=== PATIENT | female | born 1975 | race Caucasian/White ===

== ENCOUNTER 2019-12-11 18:27 | Emergency (ER) | payer OTHER, SELFPAY ==
--- NOTE | ~2019-12-11 | XR_ITS ---
EXAMINATION: XR chest 2V EXAM DATE: 12/11/2019 18:59 INDICATION: Difficulty breathing. TECHNIQUE: Frontal and lateral projections of the chest obtained and reviewed. Comparison is made to prior examination from 05/24/2012. FINDINGS: Interval development of small pleural effusions. There is some ill-defined bibasilar airsp alexander disease, could be small amounts atelectasis or pneumonia. Left basilar granuloma. Heart is normal in size. No pneumothorax. There are no osseous abnormalities identified. IMPRESSION: Small pleural effusions and nonspecific bibasilar airspace disease likely atelectasis and /or infection. Reviewed, dictated and finalized at location A. IMPRESSION: Small pleural effusions and nonspecific bibasilar airspace disease likely atelectasis and/or infection.
[2019-12-11 18:44] VITALS: BP 149/101; PULSE 99; RESP 16; TEMP 37.3; O2SAT 90
--- NOTE | 2019-12-11 18:44 | ED.URI ---
HPI - URI/Sore Throat General Chief Complaint: Upper Respiratory Infection Stated Complaint: COLD Time Seen by Provider: 12/11/19 18:45 Source: patient and RN notes reviewed History of Present Illness HPI Narrative: Patient is a 44-year-old female who presents the urgent care with complaints of upper respiratory infection. Patient states that she has had her symptoms since October and called her PCP who directed her to the urgent care. Patient states that she was also tested for [facility] that with the results were not back today. Patient states that the results should be back tomorrow. Reports of a nonproductive cough with some intermittent wheezing and dyspnea. Patient states that she started having the rattling in her chest within the last couple days . Patient denies of any fever, chills, nausea, vomiting patient states that she is an asthmatic but has not left her house to refill her inhalers. Therefore patient has taken vitamin C, Benadryl and DayQuil without much symptom relief. Patient is a daily smoker. No other acute complaints. Patient aware of the plan of care. Related Data Allergies Allergy/AdvReac Type Severity Reaction Status Date / Time Penicillins Allergy Unknown Verified 05/24/16 19:47 Review of Systems Review of Systems: Narrative: CONSTITUTIONAL: Denies fever, chills, or sweats. EYES: Denies visual changes, redness, or discharge. ENT: Denies rhinorrhea, congestion, sore throat, or otalgia. CARDIOVASCULAR: Denies chest pain, palpitations, or edema. RESPIRATORY: Reports of intermittent nonproductive cough with dyspnea and wheezing GASTROINTESTINAL: Denies abdominal pain, nausea, vomiting, or diarrhea. GENITOURINARY: Denies dysuria or hematuria. SKIN: Denies rash or itching. MUSCULOSKELETAL: Denies back pain, joint pain, or myalgia. NEUROLOGIC: Denies headache, numbness, or weakness. All other systems reviewed are negative, except as documented in HPI. PMFSH Comments At the time of my signature, I reviewed and agree with the nursing past medical, surgical, social, and family history. There is no relevant family history pertinent to the patient complaint. Exam Narrative: Exam Narrative: GENERAL: This is a well-nourished, well-developed patient, in no apparent distress. HEAD: normocephalic, atraumatic. EYES: PERRL. Sclera clear/white. Vision is grossly intact. EARS: External ears normal, auditory canals clear and without drainage, TMs normal without perforation. Hearing grossly intact. NOSE: External nose normal with no obvious nasal discharge, nares without redness, clear rhinorrhea. THROAT: Mucous membranes moist, posterior pharynx clear. NECK: Neck supple CARDIOVASCULAR: Regular rate and rhythm without murmurs, gallops, or rubs. RESPIRATORY: Right upper lobe expiratory wheezes and crackles with diminished bibasilar SKIN: warm, intact with no suspicious lesions or rash, good texture and turgor. NEURO: awake, alert, and oriented to person, place and time. There were no obvious focal neurologic abnormalities. EXTREMITIES: No clubbing, cyanosis, or edema. Course Vital Signs Vital signs: Vital Signs Temperature 99.2 F 12/11/19 18:44 Pulse Rate 99 12/11/19 18:44 Respiratory Rate 16 12/11/19 18:44 Blood Pressure 149/101 H 12/11/19 18:44 Pulse Oximetry 90 12/11/19 18:44 Temperature 99.2 F 12/11/19 18:44 Pulse Rate 99 12/11/19 18:44 Respiratory Rate 16 12/11/19 18:44 Blood Pressure 149/101 H 12/11/19 18:44 Pulse Oximetry 90 12/11/19 18:44 Reviewed-patient is informed that they may have pre-hypertension or hypertension based on a blood pressure reading in the department. I recommend the patient call the primary care provider listed on their discharge instructions or a physician of their choice this week to arrange follow-up for further evaluation of possible pre-hypertension or hypertension. MDM - URI/Sore Throat MDM Narrative Medical decision making narrative: Emy
[2019-12-11] MEDS: IPRATROPIUM BR 0.02% INH SOLN 0.5 MG/2.5 ML VIAL INHALATION (18:59)
[2019-12-11] MEDS: ALBUTEROL SULFATE NEB 2.5 MG/3 ML INH INHALATION (19:00)
[2019-12-11 19:22] VITALS: BP 152/104; PULSE 99; RESP 20; O2SAT 92
== END 2019-12-11 19:21 | disposition home or self-care (01) ==
PROVIDERS: Emergency Provider Nurse Practitioner Family
DX: J18.9 Pneumonia, unspecified organism (principal); F17.210 Nicotine dependence, cigarettes, uncomplicated
CPT/HCPCS: 71046; 94640; 99213; G0463

== ENCOUNTER 2021-08-28 12:58 | Emergency (ER) | payer SELFPAY ==
--- NOTE | ~2021-08-28 | XR_ITS ---
EXAMINATION: XR chest 1V INDICATION: Shortness of breath and hypoxia TECHNIQUE: Frontal view of the chest is obtained on two radiographs. COMPARISON: 12/11/2019 FINDINGS: There are minimal airspace opacities of the lung bases left greater than right. There is no pleural effusion or pneumothorax. The cardiomediastinal silhouette is stable. IMPRESSION: 1. Minimal bibasilar airspace opacities, consistent with atelectasis versus pneumonia. Reviewed, dictated and finalized at location A. ENT CARE COORDINATOR IMPRESSION: 1. Minimal bibasilar airspace opacities, consistent with atelectasis versus pne umonia.
[2021-08-28 13:07] VITALS: BP 152/89; PULSE 85; RESP 16; TEMP 36.5; O2SAT 84
[2021-08-28 13:09] VITALS: O2SAT 97
[2021-08-28 13:11] VITALS: O2SAT 96
--- NOTE | 2021-08-28 13:15 | ED.GENADULT ---
HPI - General Adult General Chief complaint: Shortness of Breath/Dyspnea Stated complaint: sob Time Seen by Provider: 08/28/21 13:15 Source: patient and RN notes reviewed Mode of arrival: ambulatory Limitations: no limitations History of Present Illness HPI narrative: 45-year-old female presented for complaint of Sob and cough worsening over the past 2 weeks stating it feels like the lower parts of my lungs have something in them. She was diagnosed with Covid pneumonia on 08/09/2021, and took Azithromycin and steroid as outpt as directed and noticed improvement for about 1 week. She endorses history of sarcoidosis. She is a daily smoker, 2.5 ppd until 1 mo down to 8 cig/day. She states she had been outside several times a day when the weather was '-21' caring for her dog and contributes this to worsening symptoms. Denies cp, palpitations, n/v/d/f/c. Related Data Home Medications Medication Instructions Recorded Confirmed lisinopril 20 mg PO DAILY 08/28/21 08/28/21 Allergies Allergy/AdvReac Type Severity Reaction Status Date / Time Penicillins Allergy Unknown Other Verified 08/28/21 13:06 Review of Systems Review of Systems: CONSTITUTIONAL: Endorses malaise, chills, sweats, fever EYES: Denies visual changes, redness, or discharge ENT: Reports rhinorrhea, congestion, sinus pain, otalgia, sore throat CARDIOVASCULAR: Denies chest pain, palpitations, edema RESPIRATORY: Reports cough, dyspnea GASTROINTESTINAL: Denies abdominal pain, nausea, vomiting, diarrhea SKIN: Denies rash or itching MUSCULOSKELETAL: denies myalgia NEUROLOGIC: Denies headache Exam Narrative: GENERAL: Ill-appearing, no acute distress. HEAD: Normocephalic EYES: PERRLA, conjunctivae clear ENT: Mucous membranes moist. TM pearly oakes with dull light reflex bilaterally; no tragal tenderness. Oropharynx erythematous without lesions or exudate, no drooling, no hoarseness, no trismus, uvula midline. No tripod positioning, muffled voice, soft palate or pharyngeal wall bulging NECK: Supple. No lymphadenopathy CHEST: Wheezing to right lower lobe, Oxygenation improved on 4L per NC. speaks in full sentences. HEART: Regular rate and rhythm. No murmur heard. SKIN: Warm, dry, no rash. NEURO: Alert and oriented x3. PSYCH: Normal mood and affect Course Course Emergency Course: Presented with hypoxia O2 sat 84% RA. Improved to 96% 4L per NC. Albuterol neb Tx 1330. Reassessed 1400, lungs wheezing and coarse throughout. Will get CXR. Decreased O2 to 2L per NC, 93%. Walking O2 on RA 88%. Pt adamantly refuses to transfer to ER at this time. Signing AMA, She is advised on s/s to go immediately to ER. v/u. Patient is aware of diagnosis, understands and agrees to treatment plan. Anticipatory guidance given. Patient agrees to follow-up as directed and is aware of reasons to seek care at the emergency department. Portions of this record may have been created with voice recognition software Level of Care: Express Care Visit Vital Signs Vital signs: Vital Signs Temperature 97.7 F 08/28/21 13:07 Pulse Rate 85 08/28/21 13:07 Respiratory Rate 16 08/28/21 13:07 Blood Pressure 152/89 H 08/28/21 13:07 Pulse Oximetry 84 L 08/28/21 13:07 Temperature 97.7 F 08/28/21 13:07 Pulse Rate 85 08/28/21 13:07 Respiratory Rate 16 08/28/21 13:07 Blood Pressure 152/89 H 08/28/21 13:07 Pulse Oximetry 95 08/28/21 13:30 reviewed Medical Decision Making Differential Diagnosis Differential Diagnosis: influenza, covid, sinusitis, OM, strep pharyngitis, URI, pneumonia Vital Signs Vital Signs: Vital Signs Temperature 97.7 F 08/28/21 13:07 Pulse Rate 85 08/28/21 13:07 Respiratory Rate 16 08/28/21 13:07 Blood Pressure 152/89 H 08/28/21 13:07 Pulse Oximetry 84 L 08/28/21 13:07 Temperature 97.7 F 08/28/21 13:07 Pulse Rate 85 08/28/21 13:07 Respiratory Rate 16 08/28/21 13:07 Blood Pressure 152/89 H 08/28/21 13:07 Pulse Oximetry
[2021-08-28] MEDS: ALBUTEROL SULFATE NEB 2.5 MG/3 ML INH 1.25 MG INHALATION (13:22)
[2021-08-28 13:25] VITALS: O2SAT 87
[2021-08-28 13:30] VITALS: O2SAT 95
[2021-08-28 16:00] VITALS: PULSE 94; RESP 20; O2SAT 88
== END 2021-08-28 16:00 | disposition left against medical advice (07) ==
PROVIDERS: Emergency Provider Nurse Practitioner Family
DX: R06.02 Shortness of breath (principal); R09.02 Hypoxemia; Z86.16 Personal history of COVID-19; F17.210 Nicotine dependence, cigarettes, uncomplicated
CPT/HCPCS: 71045; 94640; 99213; G0463

== ENCOUNTER 2021-08-29 20:34 | Emergency (ER) | payer SELFPAY ==
--- NOTE | ~2021-08-29 | CT_ITS ---
EXAMINATION: CTA chest PE protocol DATE: 08/29/2021 22:08 INDICATION: Right-sided back pain, recent COVID TECHNIQUE: Computed tomography angiography (CTA) of the chest was performed with 100 mL Omnipaque-350 intravenous contrast timed to evaluate the pulmonary arteries. Coronal maximum intensity projection 3D-reconstructions were created by the technologist. The dose-length product (DLP) was 1049.66 mGy-cm . Automated exposure control and iterative reconstruction technique were employed. COMPARISON: None. FINDINGS: The pulmonary arteries are well-opacified. No pulmonary embolism is identified. The examina tion is limited by the patient's body habitus and respiratory motion artifact. The lungs are free of acute opacities. There is no pleural effusion or pneumothorax. No pathologically enlarged thoracic l ymph nodes are identified. The heart size is normal. Calcified pulmonary nodules are consistent with old granulomatous disease. Stones are present in the gallbladder. IMPRESSION: 1. No pulmonary embolism or acute cardiopulmonary abnormality. 2. Cholelithiasis. Reviewed, dictated and finalized at location F. LA TENDER
[2021-08-29 20:42] VITALS: BP 178/97; PULSE 90; RESP 18; TEMP 36.9; O2SAT 93
[2021-08-29 21:07] VITALS: O2SAT 86
[2021-08-29 21:09] VITALS: RESP 25; O2SAT 86
[2021-08-29 21:10] VITALS: RESP 20; O2SAT 95; O2SAT 96
--- NOTE | 2021-08-29 21:12 | PC.NURSE ---
Patient stated, my oxygen has been running in the low 80's and I didnt think anything of it. Patient oxygen was 86% and she was SOB so I placed her on 2L of Oxygen and now she is 95%
--- NOTE | 2021-08-29 21:16 | PC.NURSE ---
Patient refused to lay down at this point and RN unable to obtain ortho stats.
[2021-08-29 21:17] LABS: Basophils Absolute Auto 0.1 K/mm3 (0.0-0.1); Basophils Percent Auto 0.4 % (0.2-1.2); Eosinophils Percent Auto 0.1 % (0-4.4); Hematocrit 56.1 % (37.0-47.0); Immature Granulocyte Absolute 0.06 K/mm3 (0.00-0.031); Immature Granulocyte Percent A 0.5 % (0-0.5); Lymphocytes Absolute Auto 0.73 K/mm3 (0.9-3.2); Lymphocytes Percent Auto 5.7 % (18.3-44.2); Mean Corpuscular HGB Conc 32.1 g/dl (32-36); Mean Corpuscular Hemoglobin 30.2 pg (26-34); Mean Corpuscular Volume 94.1 fl (80-100); Monocytes Absolute Auto 0.4 K/mm3 (0.1-0.6); Monocytes Percent Auto 3.1 % (2.6-8.5); Neutrophils Absolute Auto 11.5 K/mm3 (1.3-6.7); Neutrophils Percent Auto 90.2 % (45.5-73.1); Platelet Count Result 311 k/mm3 (150-375); Red Blood Count 5.96 M/mm3 (4.2-5.4); Red Cell Distribution Width 14.7 % (11.5-14.5); White Blood Count 12.8 K/mm3 (4.5-10.0)
[2021-08-29 21:20] LABS: Add Urine Microscopic? NO; Appearance Urine Clear (Clear); Bilirubin Urine Negative (Negative); Blood Urine Negative (Negative); Color Urine Straw (Yellow); Glucose Urine UA Negative (Negative); Ketones Urine Negative (Negative); Leukocyte Esterase Ur Negative LEU/UL (Negative); Nitrate Urine Negative (Negative); Protein Urine Negative (Negative); Specific Grav Ur 1.009 (1.001-1.035); Urobilinogen Urine Negative mg/dL (<2.0)
--- NOTE | 2021-08-29 21:20 | ED.BACK ---
HPI - Back Pain/Injury General Chief Complaint: Back Pain/Injury Stated Complaint: Right hip/flank pain, COVID+ 2/4 still symptomatic Time Seen by Provider: 08/29/21 20:52 Source: patient History of Present Illness HPI Narrative: Patient presents with back pain. Patient reports she was diagnosed with Covid end of last month she initially seen and treated with antibiotics she had worsening cough and shortness of breath was seen in urgent care yesterday. She was noted to be hypoxic with recommendation to transfer to emergency room she left the hospital AMA. She steroids and antibiotics since her urgent care evaluation yesterday and feels like her shortness of breath and cough have improved however now she is having right-sided back pain that is sharp, no radiation, intermittent, no clear aggravating or alleviating symptoms. Related Data Home Medications Medication Instructions Recorded Confirmed lisinopril 20 mg PO DAILY 08/28/21 08/28/21 Allergies Allergy/AdvReac Type Severity Reaction Status Date / Time Penicillins Allergy Unknown Other Verified 08/29/21 20:51 Review of Systems Review of Systems: CONSTITUTIONAL: Denies fever, chills, or sweats. EYES: Denies visual changes, redness, or discharge. ENT: Denies rhinorrhea, congestion, sore throat, or otalgia. CARDIOVASCULAR: Denies chest pain, palpitations, or edema. RESPIRATORY: Shortness of breath GASTROINTESTINAL: Denies abdominal pain, nausea, vomiting, or diarrhea. GENITOURINARY: Denies dysuria or hematuria. SKIN: Denies rash or itching. MUSCULOSKELETAL: Denies joint pain, or myalgia. NEUROLOGIC: Denies headache, numbness, dizziness, or weakness. PSYCHIATRIC: Denies anxiety or depression. All systems reviewed & are unremarkable except as noted in HPI and below [facility] Social History Social History (Updated 08/29/21 @ 21:22 by Kaiden Mcrae MD) Smoking status: Current every day smoker Course Reevaluation(s) Reevaluation #1: Patient's pain is improved O2 sat is responding to 2 L nasal cannula. Labs and imaging reviewed with patient recommend admission for hypoxia patient declined and signed out AMA. Date: 08/29/21 Time: 23:12 Vital Signs Vital signs: Vital Signs Temperature 36.9 C 08/29/21 20:42 Pulse Rate 90 08/29/21 20:42 Respiratory Rate 18 08/29/21 20:42 Blood Pressure 178/97 H 08/29/21 20:42 Pulse Oximetry 93 08/29/21 20:42 Temperature 36.9 C 08/29/21 20:42 Pulse Rate 90 08/29/21 20:42 Respiratory Rate 20 08/29/21 21:10 Blood Pressure 178/97 H 08/29/21 20:42 Pulse Oximetry 94 08/29/21 22:37 MDM - Back Pain/Injury MDM Narrative Medical decision making narrative: H&P as above, vs with hypoxia responding to nasal cannula, pt looks clinically well, exam reassuring, labs with leukocytosis, img reassuring, additional labs/img considered. Due to patient's persistent hypoxia is recommended that she be admitted for further evaluation and management such as pulmonology evaluation steroids and nebulized therapies. Patient declined further evaluation and management. And signed out AMA as an alternative I refilled her nebulizer therapy to take at home she has recent prescribed steroids which she reports she will take. I have also given her a referral to pulmonology as she reports she has had low oxygen levels for years. Lab Data Result diagrams: 08/29/21 21:11 08/29/21 21:11 Labs: Lab Results 08/29/21 08/29/21 08/29/21 Range/Units 21:09 21:11 21:11 WBC 12.8 H (4.5-10.0) K/mm3 RBC 5.96 H (4.2-5.4) M/mm3 Hgb 18.0 H (12.0-15.0) g/dL Hct 56.1 H (37.0-47.0) % MCV 94.1 (80-100) fl MCH 30.2 (26-34) pg MCHC 32.1 (32-36) g/dl RDW 14.7 H (11.5-14.5) % Plt Count 311 (150-375) k/mm3 MPV 10.0 (7.4-10.4) fl Immature Gran % (Auto) 0.5 (0-0.5) % Neut % (Auto) 90.2 H (45.5-73.1) % Lymph % (Auto) 5.7 L (18.3-44.2) % [place] % (Auto) 3.1 (2.6-8
[2021-08-29 21:46] LABS: Alanine Aminotransferase 18 U/L (4-35); Albumin Level 4.5 g/dL (3.5-5.1); Alkaline Phosphatase 82 U/L (38-126); Anion Gap 5 mmol/L (8-16); Aspartate Amino Transferase 27 U/L (14-36); Bilirubin,Total 0.5 mg/dL (0.2-1.3); Blood Urea Nitrogen 13 mg/dL (7-17); Calcium 9.5 mg/dL (8.4-10.2); Carbon Dioxide 33 mmol/L (22-30); Chloride 98 mmol/L (98-107); Estimated CRCL calculation 165 ml/min; Estimated Glomerular Filt Rate > 60; Glucose 149 mg/dL (65-110); Lipase 23 U/L (23-300); Potassium 4.9 mmol/L (3.4-5.0); Sodium 136 mmol/L (137-145)
[2021-08-29] MEDS: ONDANSETRON INJ 4 MG/2 ML VIAL IV PUSH (22:23)
[2021-08-29] MEDS: IBUPROFEN 600 MG TABLET PO (22:24)
[2021-08-29 22:37] VITALS: O2SAT 94
--- NOTE | 2021-08-29 23:30 | PC.NURSE ---
Patient refused ortho BP because she is unable to breath when she she lays down and she gets SOB when she stands and talks.
--- NOTE | 2021-08-29 23:31 | PC.NURSE ---
Patient signed out AMA because she states, I dont care what anyone thinks I am not staying in the hospital. Patient is out of breath while talking and changing positions and her oxygen drops in the higher 80's. Patient was put on oxygen here and her oxygen levels went to 94% but it still drops when she talks. Patient was informed about the risks of going home and signing out AMA with her oxygen saturations being so low. Patient stated, I dont care I am not staying here and my oxygen has been in the 80's Patient signed out AMA and ambulated out of the ED with all belongings and SOB while ambulating. Patient offered a wheel chair to leave the ED and patient refused and said I can walk out on my own
== END 2021-08-29 23:41 | disposition left against medical advice (07) ==
PROVIDERS: Emergency Provider Emergency Medicine; PCP Student in an Organized Health Care Education/Training Program
DX: M54.9 Dorsalgia, unspecified (principal); R09.02 Hypoxemia; Z86.16 Personal history of COVID-19; F17.200 Nicotine dependence, unspecified, uncomplicated; K80.20 Calculus of gallbladder without cholecystitis without obstruction
CPT/HCPCS: 36415; 71275; 80053; 81003; 81025; 83690; 85025; 96374; 99284; A9270; J2405; Q9967

== ENCOUNTER 2021-09-06 23:49 | Inpatient (IN) | payer SELFPAY ==
--- NOTE | ~2021-09-06 | XR_ITS ---
EXAMINATION: XR chest 2V DATE: 09/07/2021 01:48 INDICATION: Shortness of breath. TECHNIQUE: Frontal and lateral views of the chest were obtained. COMPARISON: Chest single view 08/28/2021, chest CT 08/29/2021 FINDINGS: Calcified pulmonary nodules are consistent with old granulomatous disease. There is mild at electasis in the lower lung zones. No pleural effusion or pneumothorax. The heart size is normal. IMPRESSION: 1. Mild atelectasis in the lower lung zones. Reviewed, dictated and finalized at location A. LOGING ASSISTANT
[2021-09-06 23:59] VITALS: BP 180/113; PULSE 85; RESP 22; TEMP 36.4; O2SAT 99
[2021-09-07] VITALS (22 sets, daily range): BP systolic 118–153; BP diastolic 63–94; PULSE 75–98; RESP 16–26; TEMP 36.6–37; O2SAT 88–99; BMI 55.6
--- NOTE | 2021-09-07 00:13 | ECG_ITS ---
Measurements Intervals [place] Rate: 82 P: 16 FL: 152 QRS: 65 QRSD: 95 T: 36 QT: 365 QTc: 427 Interpretive Statements SINUS RHYTHM BASELINE ARTIFACT NORMAL ECG NO SIGNIFICANT CHANGE COMPARED TO PRIOR ECG 09/10/2018 Electronically Signed On 09-07-2021 14:21:01 BARBACK by Evans Stallings M.D.
[2021-09-07 00:24] LABS: Basophils Absolute Auto 0.1 K/mm3 (0.0-0.1); Basophils Percent Auto 0.5 % (0.2-1.2); Eosinophils Absolute Auto 0.1 K/mm3 (0-0.3); Eosinophils Percent Auto 1.3 % (0-4.4); Hematocrit 56.6 % (37.0-47.0); Immature Granulocyte Absolute 0.11 K/mm3 (0.00-0.031); Lymphocytes Absolute Auto 1.85 K/mm3 (0.9-3.2); Lymphocytes Percent Auto 17.5 % (18.3-44.2); Mean Corpuscular HGB Conc 31.8 g/dl (32-36); Mean Corpuscular Hemoglobin 30.4 pg (26-34); Mean Corpuscular Volume 95.4 fl (80-100); Monocytes Absolute Auto 0.8 K/mm3 (0.1-0.6); Monocytes Percent Auto 7.3 % (2.6-8.5); Neutrophils Absolute Auto 7.7 K/mm3 (1.3-6.7); Neutrophils Percent Auto 72.4 % (45.5-73.1); Platelet Count Result 309 k/mm3 (150-375); Red Blood Count 5.93 M/mm3 (4.2-5.4); Red Cell Distribution Width 14.7 % (11.5-14.5); White Blood Count 10.6 K/mm3 (4.5-10.0)
[2021-09-07] MEDS: methylPREDNISolone SOD SUCC 125 MG VIAL IV PUSH (00:28)
[2021-09-07] MEDS: ALBUTEROL SULFATE NEB 2.5 MG/0.5 ML INH 15 MG INHALATION (00:29)
[2021-09-07] MEDS: IPRATROPIUM BR 0.02% INH SOLN 0.5 MG/2.5 ML VIAL 1.5 MG INHALATION (00:30)
[2021-09-07 00:34] LABS: Alanine Aminotransferase 22 U/L (4-35); Albumin Level 4.4 g/dL (3.5-5.1); Alkaline Phosphatase 79 U/L (38-126); Anion Gap 5 mmol/L (8-16); Aspartate Amino Transferase 36 U/L (14-36); Bilirubin,Total 0.6 mg/dL (0.2-1.3); Blood Urea Nitrogen 19 mg/dL (7-17); Calcium 9.1 mg/dL (8.4-10.2); Carbon Dioxide 36 mmol/L (22-30); Chloride 97 mmol/L (98-107); Estimated CRCL calculation 144 ml/min; Estimated Glomerular Filt Rate > 60; Glucose 158 mg/dL (65-110); Potassium 4.2 mmol/L (3.4-5.0); Sodium 138 mmol/L (137-145)
--- NOTE | 2021-09-07 02:28 | ED.SOB ---
HPI - SOB/Dyspnea General Chief Complaint: Shortness of Breath/Dyspnea Stated Complaint: low oxygen levels Time Seen by Provider: 09/06/21 23:57 History of Present Illness HPI Narrative: Patient is a 45-year-old female who presents ER with shortness of breath. Ongoing for several weeks. No improvement. She has used home albuterol and has been on antibiotics without improvement. Patient has history of 3 pack a day smoking but is only smoking half pack a day at this time. Denies fevers or chills or sweats. Has mild cough. Patient had Covid couple months back. No chest pain or chest pressure. No loss consciousness. Patient reports exertional decline due to this. She has been seen in the ER in the past and found to be hypoxic but is declined admission in the hospital. Related Data Home Medications Medication Instructions Recorded Confirmed lisinopril 20 mg PO DAILY 08/28/21 09/07/21 ibuprofen 600 mg PO Q6H PRN 09/07/21 09/07/21 Allergies Allergy/AdvReac Type Severity Reaction Status Date / Time Penicillins Allergy Unknown Other Verified 09/07/21 05:01 Review of Systems Review of Systems: All systems reviewed & are unremarkable except as noted in HPI and below Constitutional: Constitutional: Denies chills, Reports fatigue, Denies fever(s) and Reports weakness ENT: Denies nasal congestion and Denies sore throat Cardiovascular: Cardiovascular: Denies chest pain, Denies rapid heart rate and Denies radiating jaw, neck or arm pain Respiratory: Respiratory: Reports cough, Reports dyspnea and Denies wheezing Gastrointestinal: Gastrointestinal: Denies abdominal pain, Denies nausea and Denies vomiting Musculoskeletal: Musculoskeletal: Denies back pain and Denies muscle cramps PMFSH Past Medical History Medical History (Updated 09/07/21 @ 06:47 by Blake Bernard MD) Hypertension Surgical History Surgical History (Updated 09/07/21 @ 02:30 by Blake Bernard MD) No pertinent past surgical history Family History Family History (Updated 09/07/21 @ 05:23 by Cassandra Bianchi RN) Sibling Cerebrovascular accident Other Lung cancer Social History Social History (Updated 08/29/21 @ 21:22 by Kaiden Mcrae MD) Smoking status: Current every day smoker Tobacco type: cigarettes Alcohol intake: current Drinks per week: 2 Substance use: never Spiritual care concerns: No Exam Narrative: GENERAL: Well-appearing, morbidly obese, and in no acute distress. HEAD: Normocephalic, atraumatic. EYES: PERRL and EOMI. ENT: Mucous membranes moist. CHEST: Coarse wheezing rales bilateral mid lung zones. Mild respiratory distress. HEART: Regular rate and rhythm. Normal peripheral pulses. EXTREMITIES: Normal range of motion. No edema. SKIN: Warm, dry, no rash. NEURO: Alert and oriented x3. PSYCH: Normal mood and affect. Course Course Emergency Course: Patient given hour-long breathing treatment as well as IV steroids. Patient still with hypoxia and placed on 3 L satting 95%. We will plan admission to hospitalist service for further evaluation. Vital Signs Vital signs: Vital Signs Temperature 97.6 F 09/06/21 23:59 Pulse Rate 85 09/06/21 23:59 Respiratory Rate 22 H 09/06/21 23:59 Blood Pressure 180/113 H 09/06/21 23:59 Pulse Oximetry 99 09/06/21 23:59 Temperature 97.8 F 09/07/21 05:44 Pulse Rate 86 09/07/21 05:44 Respiratory Rate 22 H 09/07/21 05:44 Blood Pressure 145/94 H 09/07/21 05:44 Pulse Oximetry 94 09/07/21 05:44 MDM - SOB/Dyspnea Lab Data Result diagrams: 09/07/21 00:18 09/07/21 00:18 Labs: Lab Results 09/07/21 09/07/21 Range/Units 00:18 00:18 WBC 10.6 H (4.5-10.0) K/mm3 RBC 5.93 H (4.2-5.4) M/mm3 Hgb 18.0 H (12.0-15.0) g/dL Hct 56.6 H (37.0-47.0) % MCV 95.4 (80-100) fl MCH 30.4 (26-34) pg MCHC 31.8 L (32-36) g/dl RDW 14.7 H (11.5-14.5) % Plt Count 309 (150-375)
--- NOTE | 2021-09-07 02:52 | PM.IMHP ---
H&P: HPI History of Present Illness Date/Time: 09/07/21 02:52 Chief Complaint: Shortness of breath Narrative: This is a 45-year-old female with past medical history significant for tobacco dependence, COPD/emphysema, morbid obesity, hypertension. Patient presents to the emergency room after her pulse oximeter at home rated 82% history oxygen on room air. Patient also states that she has been exposed to mold that was growing in her home a and was coming through the HVAC system she also is recovering for COVID pneumonia and she is still a current everyday smoker of half a pack a day. Patient denies any cough or sputum production or change in sputum quality ,no fevers ,no rigors, no chills, no PND ,no orthopnea, no leg swelling, no hemoptysis, no calves pain ,no lightheadedness ,dizziness, syncope or near syncope. According to the patient she has been having shortness of breath for the last 2 months or so and now just got worse has been on Z-John on Solu pack in the outpatient setting with no improvement. Preliminary workup was significant for a oxygen saturation on room air in the 80% patient requiring 3 L of supplemental oxygen by nasal cannula. Patient is being admitted for further evaluation management and treatment. Review of Systems Review of Systems: Shortness of breath, wheezing, feeling tired. Constitutional: Constitutional: Denies chills, Reports fatigue, Denies fever(s), Reports lethargy, Denies malaise, Denies night sweats and Denies weakness Eyes: Eyes: Denies change in vision ENT: Denies dysphagia, Denies vertigo, Denies dizziness, Denies nasal congestion, Denies nasal discharge, Denies nasal obstruction and Denies odynophagia Cardiovascular: Cardiovascular: Denies chest pain, Denies chest pain with activity, Denies pedal edema, Denies edema, Denies claudication, Denies leg edema, Denies lightheadedness, Denies radiating jaw, neck or arm pain, Denies palpitations, Denies dyspnea on exertion and Denies orthopnea Respiratory: Respiratory: Denies change in phlegm color, Denies cough, Denies excessive phlegm production, Reports dyspnea and Reports wheezing Gastrointestinal: Gastrointestinal: Denies abdominal pain, Denies dyspepsia, Denies heartburn, Denies diarrhea, Denies nausea and Denies vomiting Genitourinary: Genitourinary: Reports no additional female genitourinary complaints and Reports as per HPI Musculoskeletal: Musculoskeletal: Denies arthralgias and Denies joint swelling Integumentary/Breasts: Skin/Breast: Denies rash Neurologic: Denies focal weakness and Denies Sensory deficit (Neuro) Psychiatric: Psychiatric: Reports no additional psychiatric complaints and Reports as per HPI Endocrine: Endocrine: Denies cold intolerance, Denies flushing, Denies heat intolerance, Denies polyphagia, Denies polydipsia, Denies polyuria and Denies palpitations Hematologic/Lymphatic: Hematologic/Lymphatic: Reports no additional hematologic/lymphatic complaints and Reports as per HPI Allergic/Immunologic: Allergic/Immunologic: Reports no additional allergic/immunologic complaints and Reports as per HPI PMFSH Past Medical History Medical History (Updated 09/07/21 @ 03:17 by Kendall Funes MD) Hypertension Surgical History Surgical History (Updated 09/07/21 @ 02:30 by Blake Bernard MD) No pertinent past surgical history Social History Social History (Updated 08/29/21 @ 21:22 by Kaiden Mcrae MD) Smoking status: Current every day smoker Meds Home Medications and Allergies Home Medications Medication Instructions Recorded Confirmed Type albuterol sulfate 1 inh INHALATION QID PRN #8.5 g 08/28/21 Rx doxycycline hyclate 100 mg PO BID 7 Days #14 tablet 08/28/21 Rx lisinopril 20 mg PO DAILY 08/28/21 08/28/21 History methylprednisolone [Medrol (John)] See Rx Instructions .ROUTE 08/28/21 Rx .COMPLEX #21 ea albuterol sulfate 2.5 mg INHALATION Q4H PRN #15 ml 08/29/21 Rx ipratropium bromide 2.5 ml INHALAT
[2021-09-07] MEDS: SODIUM CHLORIDE 0.9% IV 1,000 ML 125 ML IV CONT (03:44)
--- NOTE | 2021-09-07 05:07 | ADMGEN ---
This patient, Renee Brownlee, was admitted to Medical Room 347-01. Patient/family oriented to hospital policies and general routines including ID bracelet, bed and alarms, visiting hours, pain management, procedures, bathroom and other care routines, personal items, smoking policy, room service/diet, and visiting hours. Information on how to activate the Rapid Response Team has been discussed. Patient/Family are encouraged to report perceived risks to care and to ask questions if they do not understand what they are told or what they should do.
[2021-09-07] MEDS: ONDANSETRON INJ 4 MG/2 ML VIAL IV PUSH (06:40)
[2021-09-07] MEDS: methylPREDNISolone SOD SUCC 125 MG VIAL 60 MG IV PUSH ×3 (06:42→18:25)
[2021-09-07] MEDS: HYDROcodone/acetaminophen (*CRX) 5-325 MG TABLET 1 TAB PO ×3 (06:42→21:26)
[2021-09-07] MEDS: IPRATROPIUM BR 0.02% INH SOLN 0.5 MG/2.5 ML VIAL INHALATION ×3 (07:15→20:26)
[2021-09-07] MEDS: ALBUTEROL SULFATE NEB 2.5 MG/0.5 ML INH 5 MG INHALATION ×3 (07:15→20:27)
--- NOTE | 2021-09-07 09:58 | PM.IMPN ---
Progress Note: A&P Assessment and Plan (1) Respiratory failure with hypoxia: Code(s): J96.91 - Respiratory failure, unspecified with hypoxia Status: Acute Assessment and Plan: -Likely secondary to COPD exacerbation w/ complication of recent COVID pneumonia and being a daily smoker -Currently on 3 L of oxygen by nasal cannula, does not wear home oxygen -Continuous pulse ox -wean oxygen as tolerated (2) COPD (chronic obstructive pulmonary disease) with emphysema: Code(s): J43.9 - Emphysema, unspecified Status: Acute Assessment and Plan: -Breathing treatments q6 hrs -solumedrol 60 mg IV q6hr -supplemental oxygen as needed (3) Tobacco dependence: Code(s): F17.200 - Nicotine dependence, unspecified, uncomplicated Status: Acute Assessment and Plan: -Patient is down to half pack a day from 3 packs previous -nicotine patch available as needed (4) Morbid obesity with BMI of 45.0-49.9, adult: Code(s): E66.01 - Morbid (severe) obesity due to excess calories; Z68.42 - Body mass index [BMI] 45.0-49.9, adult Status: Acute Assessment and Plan: -Lifestyle and diet modifications Subjective Date/time seen: 09/07/21 09:58 Interval history: 45-year-old female with past medical history significant for tobacco dependence, COPD/emphysema, morbid obesity, hypertension, admitted for COPD exacerbation. Pt is tearful and very anxious today. She reports she has had a lot of stress recently such as living in a house with mold, faisal covid last month, and just a few days ago she found her brother in cardiac arrest. She denies sob however she is currently on 3L oxygen and does not wear home oxygen. Has some chest discomfort associated with sitting down after exertion. No pain with exertion. No LE pain or edema. No N/V/abd pain. Review of Systems Review of Systems: All systems reviewed & are unremarkable except as noted in HPI and below Exam Narrative: General: No acute distress, non toxic appearing, tearful, morbidly obese Eyes: PERRL, no scleral icterus HEENT: NCAT, external ears normal, MMM Respiratory: No respiratory distress, Lung sounds diminshed bilaterally, no wheezing Cardiovascular: RRR, no murmur Abdominal: Soft, nontender, non distended, no rebound or guarding Musculoskeletal: Moves all 4 extremities, no calf tenderness Neurological: A/Ox3, speech normal, no facial asymmetry Skin: Warm, dry, no rashes Psychiatric: Normal affect, anxious Objective Data Vital Signs Vital Signs: Vital Signs - 24 hr 09/06/21 23:59 09/07/21 00:07 09/07/21 00:30 Temperature 97.6 F Pulse Rate 85 Respiratory Rate 22 H Blood Pressure 180/113 H Pulse Oximetry 99 99 99 09/07/21 00:31 09/07/21 01:39 09/07/21 01:41 Temperature Pulse Rate 90 84 98 Respiratory Rate 20 20 20 Blood Pressure 153/82 H Pulse Oximetry 93 09/07/21 02:00 09/07/21 02:51 09/07/21 03:01 Temperature Pulse Rate 82 85 Respiratory Rate 26 H 16 Blood Pressure 138/82 141/78 H Pulse Oximetry 95 93 94 09/07/21 03:16 09/07/21 03:31 09/07/21 05:44 Temperature 97.8 F Pulse Rate 77 75 86 Respiratory Rate 17 16 22 H Blood Pressure 118/63 120/63 145/94 H Pulse Oximetry 92 95 94 09/07/21 07:17 09/07/21 07:23 09/07/21 08:00 Temperature Pulse Rate 91 86 Respiratory Rate 16 16 Blood Pressure Pulse Oximetry 93 93 Intake/Output Intake/Output: Intake & Output 09/04/21 09/05/21 09/06/21 09/07/21 23:59 23:59 23:59 23:59 Intake Total 240 Output Total 600 Balance -360 Meds/Results Medications: Active Medications Generic Name Dose Route Start Last Admin Trade Name Freq PRN Reason Stop Dose Admin Acetaminophen 650 mg 09/07/21 02:54 Acetaminophen 325 Mg Tablet PO Q4H PRN Mild Pain (1-3) or Fever Hydrocodone Bitart/Acetaminophen 1 tab 09/07/21 02:54 09/07/21 06:42 Hydrocod
[2021-09-07 10:38] LABS: Troponin I < 0.012 ng/mL (0.000-0.034)
[2021-09-07 13:18] LABS: Troponin I < 0.012 ng/mL (0.000-0.034)
[2021-09-07 17:48] LABS: Troponin I < 0.012 ng/mL (0.000-0.034)
[2021-09-07] MEDS: NICOTINE (*PBKC) 21 MG PATCH 1 PATCH TRANSDERM (21:25)
[2021-09-08] VITALS (14 sets, daily range): BP systolic 113–138; BP diastolic 67–85; PULSE 76–99; RESP 16–20; TEMP 35.7–38.1; O2SAT 91–93
[2021-09-08] MEDS: methylPREDNISolone SOD SUCC 125 MG VIAL 60 MG IV PUSH ×4 (00:35→18:58)
[2021-09-08] MEDS: ALBUTEROL SULFATE NEB 2.5 MG/0.5 ML INH 5 MG INHALATION ×4 (02:30→19:47)
[2021-09-08] MEDS: IPRATROPIUM BR 0.02% INH SOLN 0.5 MG/2.5 ML VIAL INHALATION ×4 (02:30→19:48)
[2021-09-08] MEDS: ONDANSETRON INJ 4 MG/2 ML VIAL IV PUSH ×2 (05:05→12:55)
[2021-09-08 05:19] LABS: Basophils Percent Auto 0.1 % (0.2-1.2); Hemoglobin 15.8 g/dL (12.0-15.0); Immature Granulocyte Absolute 0.14 K/mm3 (0.00-0.031); Immature Granulocyte Percent A 0.8 % (0-0.5); Lymphocytes Absolute Auto 0.45 K/mm3 (0.9-3.2); Lymphocytes Percent Auto 2.7 % (18.3-44.2); Mean Corpuscular HGB Conc 31.6 g/dl (32-36); Mean Corpuscular Hemoglobin 29.9 pg (26-34); Mean Corpuscular Volume 94.5 fl (80-100); Monocytes Absolute Auto 0.4 K/mm3 (0.1-0.6); Monocytes Percent Auto 2.2 % (2.6-8.5); Neutrophils Absolute Auto 15.7 K/mm3 (1.3-6.7); Neutrophils Percent Auto 94.2 % (45.5-73.1); Platelet Count Result 269 k/mm3 (150-375); Red Blood Count 5.29 M/mm3 (4.2-5.4); Red Cell Distribution Width 14.3 % (11.5-14.5); White Blood Count 16.6 K/mm3 (4.5-10.0)
[2021-09-08 05:34] LABS: Anion Gap 1 mmol/L (8-16); Blood Urea Nitrogen 16 mg/dL (7-17); Calcium 8.7 mg/dL (8.4-10.2); Carbon Dioxide 36 mmol/L (22-30); Chloride 99 mmol/L (98-107); Estimated CRCL calculation 181 ml/min; Estimated Glomerular Filt Rate > 60; Glucose 165 mg/dL (65-110); Potassium 5.2 mmol/L (3.4-5.0); Sodium 136 mmol/L (137-145)
--- NOTE | 2021-09-08 08:02 | PM.IMPN ---
Progress Note: A&P Assessment and Plan (1) Respiratory failure with hypoxia: Code(s): J96.91 - Respiratory failure, unspecified with hypoxia Status: Acute Assessment and Plan: -Likely secondary to tobacco dependence (daily smoker), COPD/emphysema, morbid obesity, s/p COVID infection, toxic inhalation/mold exposure. -Currently on 3 L of oxygen by nasal cannula, does not wear home oxygen -Continuous pulse ox -wean oxygen as tolerated -Likely COPD exacerbation. but rule out other unlikely causes as this is her repeat admission for SOB and dyspnea. -having SOB and dyspnea due to mold in her home, water in her AC system in her home, gaining the recent 75 pounds, having multiple episodes of COVID per patient report, self-diagnosis of sarcoidosis, her continued smoking, stress related to her marriage ending and her mother/brother's health deterioration. -checking urine legionella, respiratory tests -getting some diuresis (careful) as her BNP is elevated and she has 2+ pitting edema to BLE, but her potassium and CBC is elevated. -needs to get a HOME O2 study completed prior to discharge. No prior home O2 use or requirement. (2) COPD (chronic obstructive pulmonary disease) with emphysema: Code(s): J43.9 - Emphysema, unspecified Status: Acute Assessment and Plan: -Breathing treatments q6 hrs, ordered DUONEBS -started on Advair and Mucinex. -Solumedrol 60 mg IV q6hr -WBC is up from 10 to 16 today, No fevers, likely from steroids, continue watching. -supplemental oxygen as needed -stop smoking immediately -needs routine follow up with a grinding and polishing laborer. Consulted grinding and polishing laborer. -reduce physical stress and mental stress -self treats her hypoxia by taking 1200mg of Ibuprofen daily because that is the only thing that makes me feel better and breathe better. -educated the patient about the concerning side effects of taking large daily ibuprofen doses and that the ibuprofen is not improving her COPD. -needs a full outpatient sleep study - ordered Apnea test for overnight here (3) Tobacco dependence: Code(s): F17.200 - Nicotine dependence, unspecified, uncomplicated Status: Acute Assessment and Plan: -Patient is down to half pack a day from 3 packs previous -nicotine patch available as needed -stop smoking immediately -needs routine follow up with a grinding and polishing laborer. (4) Morbid obesity with BMI of 45.0-49.9, adult: Code(s): E66.01 - Morbid (severe) obesity due to excess calories; Z68.42 - Body mass index [BMI] 45.0-49.9, adult Status: Acute Assessment and Plan: -Lifestyle and diet modifications -weight loss -increase activity and ambulation throughout the day Subjective Date/time seen: 09/08/21 08:02 Interval history: Renee is a 45-year-old female with past medical history significant for tobacco dependence, COPD/emphysema, morbid obesity, hypertension, admitted for COPD exacerbation. She is hoping to improve and be discharged in the next 1-2 days. She admitted that she needs to stop smoking immediately and to have routine follow up with a grinding and polishing laborer. Her concern is that she has no insurance and no job to pay for any of her doctor visits; she has tried to apply for disability but stated that she did not qualify. She is concerned as she wants to get better to get back to work as soon as possible. She stated that her brother is intubated and in the ICU below here at [facility]; and that she had to do the CPR and help lift him so he could be brought in, so she feels that all that physical stress and mental stress has really put a toll on her body, when she was already feeling poorly for the last 1-2 weeks. She stated that she has been having SOB and dyspnea due to mold in her home, water in her AC system in her home, gaining the recent 75 pounds, having multiple episodes of COVID per patient report, self-diagnosis of sarcoidosis, her continued smoking, stress related to
[2021-09-08] MEDS: lisinopriL 20 MG TABLET PO (10:43)
[2021-09-08 11:24] LABS: NT Pro B Type Natriuretic Pept 341 pg/mL (5-100)
[2021-09-08 11:41] LABS: CRP 0.5 mg/dL (<1.0)
[2021-09-08 11:48] LABS: Vitamin D 25 Hydroxy 18.2 ng/mL
[2021-09-08 11:53] LABS: Erythrocyte Sedimentation Rate 1 mm/hr (0-20)
[2021-09-08 12:01] LABS: Thyroid Stimulating Hormone Reflex 0.775 uIU/mL (0.465-4.68)
[2021-09-08] MEDS: NICOTINE (*PBKC) 21 MG PATCH 1 PATCH TRANSDERM (12:43)
[2021-09-08] MEDS: PANTOPRAZOLE 40 MG TABLET PO (12:43)
[2021-09-08] MEDS: guaiFENesin 12 HR 600 MG TABCR 1200 MG PO ×2 (12:43→21:17)
[2021-09-08] MEDS: FUROSEMIDE INJ 40 MG/4 ML VIAL 20 MG IV PUSH (12:44)
[2021-09-08] MEDS: SODIUM CHLORIDE 0.9% IV 500 ML 150 ML IV CONT (12:45)
[2021-09-08] MEDS: HYDROcodone/acetaminophen (*CRX) 5-325 MG TABLET 1 TAB PO (12:55)
[2021-09-08] MEDS: DOCUSATE SODIUM 100 MG CAPSULE PO ×2 (12:57→21:17)
[2021-09-08 13:03] LABS: Phosphorus 3.6 mg/dL (2.5-4.5)
[2021-09-08 15:40] LABS: Anion Gap 6 mmol/L (8-16); Blood Urea Nitrogen 28 mg/dL (7-17); Calcium 9.2 mg/dL (8.4-10.2); Carbon Dioxide 35 mmol/L (22-30); Chloride 96 mmol/L (98-107); Estimated CRCL calculation 118 ml/min; Estimated Glomerular Filt Rate > 60; Glucose 139 mg/dL (65-110); Sodium 137 mmol/L (137-145)
[2021-09-08] MEDS: CHOLECALCIFEROL 1,000 UNITS TABLET 5000 UNITS PO (15:46)
[2021-09-08] MEDS: PSYLLIUM POWDER PACKET 1 PACKET PO (15:47)
[2021-09-08] MEDS: FLUTICASONE/SALMETEROL 115-21 MCG INHALER 1 PUFF 2 PUFF INHALATION (19:47)
[2021-09-09] VITALS (13 sets, daily range): BP systolic 122–151; BP diastolic 63–80; PULSE 70–85; RESP 18–24; TEMP 36.1–36.6; O2SAT 90–96
[2021-09-09 05:45] LABS: Basophils Percent Auto 0.2 % (0.2-1.2); Hematocrit 50.5 % (37.0-47.0); Hemoglobin 15.6 g/dL (12.0-15.0); Immature Granulocyte Absolute 0.16 K/mm3 (0.00-0.031); Immature Granulocyte Percent A 0.8 % (0-0.5); Lymphocytes Absolute Auto 0.57 K/mm3 (0.9-3.2); Mean Corpuscular HGB Conc 30.9 g/dl (32-36); Mean Corpuscular Hemoglobin 30.1 pg (26-34); Mean Corpuscular Volume 97.5 fl (80-100); Mean Platelet Volume 10.3 fl (7.4-10.4); Monocytes Absolute Auto 0.8 K/mm3 (0.1-0.6); Monocytes Percent Auto 4.2 % (2.6-8.5); Neutrophils Absolute Auto 17.7 K/mm3 (1.3-6.7); Neutrophils Percent Auto 91.8 % (45.5-73.1); Platelet Count Result 288 k/mm3 (150-375); Red Blood Count 5.18 M/mm3 (4.2-5.4); Red Cell Distribution Width 14.6 % (11.5-14.5); White Blood Count 19.2 K/mm3 (4.5-10.0)
[2021-09-09 05:59] LABS: Alanine Aminotransferase 27 U/L (4-35); Albumin Level 3.7 g/dL (3.5-5.1); Alkaline Phosphatase 60 U/L (38-126); Anion Gap 4 mmol/L (8-16); Aspartate Amino Transferase 36 U/L (14-36); Bilirubin,Total 0.3 mg/dL (0.2-1.3); Blood Urea Nitrogen 26 mg/dL (7-17); Calcium 8.7 mg/dL (8.4-10.2); Carbon Dioxide 36 mmol/L (22-30); Chloride 96 mmol/L (98-107); Estimated CRCL calculation 134 ml/min; Estimated Glomerular Filt Rate > 60; Glucose 138 mg/dL (65-110); Potassium 4.8 mmol/L (3.4-5.0); Sodium 136 mmol/L (137-145)
[2021-09-09] MEDS: methylPREDNISolone SOD SUCC 125 MG VIAL 60 MG IV PUSH ×2 (06:01→11:34)
[2021-09-09 06:09] LABS: D Dimer 0.25 ug/mL (<0.48)
[2021-09-09] MEDS: FLUTICASONE/SALMETEROL 115-21 MCG INHALER 1 PUFF 2 PUFF INHALATION (08:29)
[2021-09-09] MEDS: IPRATROPIUM BR 0.02% INH SOLN 0.5 MG/2.5 ML VIAL INHALATION ×3 (08:29→20:31)
[2021-09-09] MEDS: ALBUTEROL SULFATE NEB 2.5 MG/0.5 ML INH INHALATION ×3 (08:29→20:31)
[2021-09-09] MEDS: ACETAMINOPHEN 325 MG TABLET 650 MG PO (08:53)
[2021-09-09] MEDS: NICOTINE (*PBKC) 21 MG PATCH 1 PATCH TRANSDERM (08:55)
[2021-09-09] MEDS: CHOLECALCIFEROL 1,000 UNITS TABLET 5000 UNITS PO (08:55)
[2021-09-09] MEDS: PSYLLIUM POWDER PACKET 1 PACKET PO (08:55)
[2021-09-09] MEDS: guaiFENesin 12 HR 600 MG TABCR 1200 MG PO (08:56)
[2021-09-09] MEDS: DOCUSATE SODIUM 100 MG CAPSULE PO ×2 (08:56→21:26)
[2021-09-09] MEDS: ENOXAPARIN 40 MG/0.4 ML SYRINGE SUB-Q (08:57)
[2021-09-09] MEDS: lisinopriL 20 MG TABLET PO (08:57)
[2021-09-09] MEDS: PANTOPRAZOLE 40 MG TABLET PO (08:57)
--- NOTE | 2021-09-09 12:01 | PM.IMPN ---
Progress Note: A&P Additional Plan 45-year-old female with past medical history significant for tobacco dependence, COPD/emphysema, morbid obesity, hypertension, presented with hypoxia, SOB. 1)Acute Hypoxic Resp Failure: Likely combination of obseity hypoventilation+Astham C/w O2 support Appreciate Pulmonary consult Further recs as per pulmonary service c/w Bronchodilators c/w steroids Add lasix Obtain echo smoking cessation counseling Monitor leucocytosis, likely secondary to steroids, will monitor Will likely need O2 upon discharge 2)DVT ppx: Lovenox 3)Code:Full 4)Dispo:pending improvement in hypoxia Time Spent With Patient Time with patient: 25 - 35 minutes Subjective Date/time seen: 09/09/21 12:01 Interval history: anxious, hypoxia at night no other acute events overnight Review of Systems Review of Systems: All systems reviewed & are unremarkable except as noted in HPI and below Constitutional: Constitutional: Reports no additional constitutional complaints Eyes: Eyes: Reports no additional eye complaints ENT: Reports system reviewed and no additional complaints, except as documented Cardiovascular: Cardiovascular: Reports no additional cardiovascular complaints Respiratory: Respiratory: Reports dyspnea and Reports wheezing Gastrointestinal: Gastrointestinal: Reports no additional gastrointestinal complaints Musculoskeletal: Musculoskeletal: Reports no additional musculoskeletal complaints Neurologic: Reports system reviewed and no additional complaints, except as documented Psychiatric: Psychiatric: Reports anxiety Exam Narrative: on nasal canula Const: General: no acute distress Nutritional Appearance: obese Orientation/consciousness: patient oriented x3 HENMT: Mouth: Yes moist mucous membranes Eyes: General: appearance normal, both eyes and all related structures Pupils: Equal, round and reactive pupils present Neck: Neck: supple Resp: Other: scattered B/l wheezing+, decreased breath sounds b/L Cardio: Rate: regular rate Rhythm: regular rhythm GI: GI Palp: Yes Soft to palpation Auscultation: normal bowel sounds Skin: General skin exam: normal color Neuro: Cognition (Neuro): normal cognition Speech: normal speech Motor exam (neuro): 5/5 motor strength present throughout Sensory Exam: normal sensation Psych: Affect: Anxious affect present Objective Data Vital Signs Vital Signs: Vital Signs - 24 hr 09/08/21 13:17 09/08/21 15:15 09/08/21 15:23 Temperature Pulse Rate 99 99 91 Respiratory Rate 20 18 18 Blood Pressure 117/67 Pulse Oximetry 93 09/08/21 16:35 09/08/21 19:48 09/08/21 19:58 Temperature 100.6 F H Pulse Rate 95 89 91 Respiratory Rate 16 18 18 Blood Pressure 134/85 Pulse Oximetry 93 09/08/21 22:00 09/08/21 22:36 09/09/21 06:00 Temperature 96.3 F L 97 F L Pulse Rate 94 75 Respiratory Rate 20 20 Blood Pressure 138/77 122/63 Pulse Oximetry 91 91 91 09/09/21 08:00 09/09/21 08:28 09/09/21 08:32 Temperature Pulse Rate 82 77 78 Respiratory Rate 18 18 Blood Pressure Pulse Oximetry 92 92 09/09/21 08:43 Temperature Pulse Rate 82 Respiratory Rate 18 Blood Pressure Pulse Oximetry Intake/Output Intake/Output: Intake & Output 09/06/21 09/07/21 09/08/21 09/09/21 23:59 23:59 23:59 23:59 Intake Total 720 1330 420 Output Total 1600 1450 Balance -880 -120 420 Meds/Results Medications: Active Medications Generic Name Dose Route Start Last Admin Trade Name Freq PRN Reason Stop Dose Admin Acetaminophen 650 mg 09/07/21 02:54 09/09/21 08:53 Acetaminophen 325 Mg Tablet PO 650 mg Q4H PRN Administration Mild Pain (1-3) or Fever Hydrocodone Bitart/Acetaminophen 1 tab 09/07/21 02:54 09/08/21 12:55 Hydrocodone/Acetaminophen (*Crx) 5-325 Mg Tablet PO 1 tab Q4H PRN Administration Pain Rated 4-6 Albuterol 2.5 mg 09/09/21 08:00 09/09/21 08:29 Albuterol Sulfate Neb
[2021-09-09] MEDS: traMADol HCL (*CRX) 50 MG TABLET PO ×2 (12:40→19:45)
[2021-09-09 12:47] LABS: Alveolar/Arterial O2 Gradient 102.3 mmHg; Base Excess ABG 5.4 mEq/l (+/-2.0); Fractional Inspired Oxygen 32 %; HCO3 ABG 33.1 mEq/l (22.0-26.0); Oxygen Content ABG 21.6 %vol (16.0-22.0); PCO2 ABG 59.7 mmHg (35.0-45.0); PO2 FiO2 Ratio Arterial Blood 1.75 %; Total Hemoglobin 17.3 g/dL (12.0-18.0); pH ABG 7.362 (7.350-7.450)
[2021-09-09 12:48] LABS: Device NASAL CANNULA; Modified Allen's Test Pass; Oxygen Saturation ABG 87.4 % (95.0-100.0); Site Drawn LEFT RADIAL
--- NOTE | 2021-09-09 13:06 | PM.CNPUL ---
Assessment and Plan Assessment and plan (1) Obesity hypoventilation syndrome: Code(s): E66.2 - Morbid (severe) obesity with alveolar hypoventilation Status: Acute Assessment and Plan: Patient with morbid obesity with a BMI of 55.6 And resting blood gas on 3 L nasal cannula 7.36/50/56 indicating that she does have obesity hypoventilation syndrome. the patient would benefit from noninvasive ventilation to prevent disease progression and prevent further hospitalizations. Of note patient has a normal TSH on 09/08/2021 of 0.775. I will initiate noninvasive ventilation with BiPAP and if she does not tolerate BiPAP I will convert her to noninvasive ventilator with an AVAPS mode. Patient also has severe hypoxemia at night on room air with saturations less than or equal to 88% at 408 minutes or 100% of the monitored time last night. I will place her on 35% FiO2 and repeat an overnight oximetry on her noninvasive ventilation with this setting. I explained to her that she must lose weight. I will obtain an echocardiogram to assess her LV function, valvular function, right ventricular size and function and perform a bubble study to assess for a right to left shunt given she has been hypoxic for many years. (2) Asthma: Code(s): J45.909 - Unspecified asthma, uncomplicated Status: Acute Assessment and Plan: The patient has a lifelong history of 2-3 episodes of upper respiratory tract infections -wheezing -shortness of breath all her life. She has been told she has asthma as well as COPD. she had no eosinophilia on presentation with a white blood cell count of 10.6 in a eosinophil count of 1.3%=138/uL. I see no bullous emphysema on her CT scan of the chest. She has no wheezing today. At this time I will continue to treat her for an asthma exacerbation and will change her to prednisone 40 mg a day. I will continue albuterol 2.5 mg nebulized q.6 hours and ipratropium 0.5 mg nebulized q.6 hours. she has no phlegm production, and I feel no need for antibiotics at this time. I will send a hypersensitivity pneumonitis panel is she has a history of exposure to black mold as well as IgG, IgA, IgM and IgE levels as she has recurrent bouts of possible respiratory tract infections throughout her life. She has no evidence of interstitial lung disease, post COVID interstitial lung disease or organizing pneumonia on her CT scan from 08/29/2021. obesity hypoventilation, untreated sleep apnea, morbid obesity, are likely all contributing to this patient's worsening respiratory condition over the last 2-3 months. will follow with you. History of Present Illness History of Present Illness Consult date: 09/09/21 Requesting physician: Charlene Grant MD Reason for consult: asthma, COPD and hypoxemia Chief complaint: hypoxia, copd exacerbation Narrative: 09/09/2021: This is a new pulmonary consult for hypoxemia. 45-year-old woman with a history of hypertension, morbid obesity, tobacco use, COVID on 08/09/2021, bronchitis, asthma, COPD and a self diagnosis of sarcoid presents to the hospital with shortness of breath and hypoxemic respiratory failure. Since her teenage years throughout her entire life the patient has had frequent upper respiratory tract infections requiring ED visits where she is treated with antibiotics and steroids. She has been told she had asthma and has been given inhalers in the past. She has not continue these inhalers because she feels well other than these episodes 2 to 3 times a year where she has cough, shortness of breath and phlegm production. The patient has told she has COPD but never had PFTs. She is a current tobacco user from age 14 at 1 and half packs per day for 46 pack years. Currently she is at 1/2 pack per day. Patient denies vaping. She does smoke marijuana cigarette approximately 1 time a month. She denies sandblasting, welding, asbestos were, professional painting or steel
--- NOTE | 2021-09-09 13:19 | ECHO_ITS ---
Patient Info Name: Renee Brownlee Age: 45 years : 1975 Gender: Female Ht: 65 in Wt: 334 lbs BSA: 2.73 m2 HR: 82 bpm BP: 122 / 63 mmHg Heart Rhythm: Sinus Rhythm Technical Quality: Poor Exam Date: 09/09/2021 4:24 PM Exam Location: [facility] Pulmonary Exam Room: [facility] Patient Status: Inpatient Admit Date: 09/08/2021 Staff Ordering Physician: Winston Krueger MD Superintendent Recreation: Faina Abdul RDCS Attending Provider: Marisabel Rhodes NP Referring Physician: Evans SINHA; Exam Type: CA echo dop bubble study w con Study Info Indications - hypoxia assess for pfo Complete two-dimentional, color flow and Doppler transthoracic echocardiogram is performed with agitated saline and with contrast to opacify the left ventricle and to improve the delineation of the left ventricle endocardial borders. Contrast/Agitated Saline Contrast/Ag. Saline: Agitated Saline Amount: 20.00 ml Administered By: Faina Abdul [facility] Existing IV Access: Yes IV Access Condition: patent with no signs of infiltration Reason for Poor Study: patient body habitus Summary 1. Very technically difficult study with limited views despite definity echo contrast enhancement. Regional wall motion assessment limited due to poor endomyocardial border definition. 2. Left ventricular chamber dimension is probably normal. 3. Left ventricular systolic function is normal, estimated at 60-65%. 4. The left ventricular diastolic function is grade I diastolic dysfunction. 5. There is trace tricuspid valve regurgitation. 6. No pulmonary hypertension, estimated pulmonary arterial systolic pressure is 29 mmHg. 7. Technically suboptimal bubble study with and without Valsalva. No obvious shunt noted, however sensitivity and specificity for intracardiac shunt limited. Consider transesophageal echocardiogram if clinically indicated. Left Ventricle Very technically difficult study with limited views despite definity echo contrast enhancement. Regional wall motion assessment limited due to poor endomyocardial border definition. Left ventricular chamber dimension is probably normal. Left ventricular systolic function is normal, estimated at 60-65%. There is mildly increased left ventricular wall thickness. The left ventricular diastolic function is grade I diastolic dysfunction. Right Ventricle Right ventricular chamber dimension is not well visualized. Left Atria Left atrial chamber dimension is not well visualized. Right Atria Right atrial chamber dimension is not well visualized. Atrial Septum Technically suboptimal bubble study with and without Valsalva. No obvious shunt noted, however sensitivity and specificity for intracardiac shunt limited. Consider transesophageal echocardiogram if clinically indicated. Aortic Valve The aortic valve is not well visualized. There is no aortic valve stenosis. Pulmonic Valve The pulmonic valve is not well visualized. Mitral Valve The mitral valve has not well visualized. Tricuspid Valve The tricuspid valve leaflets are not well visualized. There is trace tricuspid valve regurgitation. No pulmonary hypertension, estimated pulmonary arterial systolic pressure is 29 mmHg. Pericardium/Pleural The pericardium appears not well visualized. Aorta The aortic root size at the sinus of Valsalva is not well visualized. Left Ventricular Outflow Tract
[2021-09-09] MEDS: FUROSEMIDE INJ 40 MG/4 ML VIAL 20 MG IV PUSH (13:41)
[2021-09-09] MEDS: PERFLUTREN LIPID MICROSPHERES 1.5 ML VIAL DILUTED TO 10 ML TOTAL VOLUME IV PUSH (16:53)
--- NOTE | 2021-09-09 16:53 | IVDEFINITY ---
Prior to administration of IV Definity the patient was educated on the risks and benefits of the imaging enhancing agent including potential adverse side effects. The patient verbalized understanding. Allergies were verified. No exclusion criteria were identified and at least one of the following inclusion criteria were met: 1) physician request, 2) patient technically difficult to image (per the [place] [employer] guidelines of two or more segments not discernable within the apical view), or 3) questionable left ventricular function. ?
[2021-09-09] MEDS: LORazepam INJ (*CRX) 2 MG/ML VIAL 0.5 MG IV PUSH (19:46)
[2021-09-10] VITALS (9 sets, daily range): BP systolic 142–150; BP diastolic 90–99; PULSE 66–97; RESP 16–24; TEMP 36.1–36.4; O2SAT 91–99
--- NOTE | 2021-09-10 02:38 | PCRCNOTE ---
Patient on apnea link, therefore her 0200 breathing treatment was omitted.
[2021-09-10 05:39] LABS: Alveolar/Arterial O2 Gradient 91.8 mmHg; Base Excess ABG 6.5 mEq/l (+/-2.0); Fractional Inspired Oxygen 35 %; HCO3 ABG 34.6 mEq/l (22.0-26.0); Oxygen Content ABG 21.6 %vol (16.0-22.0); Oxygen Saturation ABG 95.5 % (95.0-100.0); Oxyhemoglobin 94.6 % THb (90.0-100.0); PO2 ABG 83.7 mmHg (80.0-100.0); PO2 FiO2 Ratio Arterial Blood 2.39 %; Total Hemoglobin 16.2 g/dL (12.0-18.0); pH ABG 7.353 (7.350-7.450)
[2021-09-10 05:40] LABS: PCO2 ABG 63.7 mmHg (35.0-45.0)
[2021-09-10 05:41] LABS: Device NON-INVASIVE VENT; Modified Allen's Test Pass; Site Drawn RIGHT RADIAL
[2021-09-10 05:44] LABS: Non-Invasive Expiratory Pressure 8 CMH2O; Non-Invasive Vent Rate 14 /MIN
[2021-09-10] MEDS: traMADol HCL (*CRX) 50 MG TABLET PO ×2 (06:21→14:23)
[2021-09-10 06:45] LABS: Basophils Percent Auto 0.2 % (0.2-1.2); Eosinophils Percent Auto 0.1 % (0-4.4); Hematocrit 53.7 % (37.0-47.0); Hemoglobin 16.5 g/dL (12.0-15.0); Immature Granulocyte Percent A 0.8 % (0-0.5); Lymphocytes Absolute Auto 1.23 K/mm3 (0.9-3.2); Lymphocytes Percent Auto 9.8 % (18.3-44.2); Mean Corpuscular HGB Conc 30.7 g/dl (32-36); Mean Corpuscular Hemoglobin 29.9 pg (26-34); Mean Corpuscular Volume 97.5 fl (80-100); Mean Platelet Volume 10.7 fl (7.4-10.4); Monocytes Absolute Auto 0.9 K/mm3 (0.1-0.6); Monocytes Percent Auto 7.2 % (2.6-8.5); Neutrophils Absolute Auto 10.3 K/mm3 (1.3-6.7); Neutrophils Percent Auto 81.9 % (45.5-73.1); Platelet Count Result 277 k/mm3 (150-375); Red Blood Count 5.51 M/mm3 (4.2-5.4); Red Cell Distribution Width 14.7 % (11.5-14.5); White Blood Count 12.6 K/mm3 (4.5-10.0)
[2021-09-10 06:47] LABS: Blood Urea Nitrogen 32 mg/dL (7-17); Calcium 9.1 mg/dL (8.4-10.2); Carbon Dioxide > 40 mmol/L (22-30); Chloride 93 mmol/L (98-107); Estimated CRCL calculation 118 ml/min; Estimated Glomerular Filt Rate > 60; Glucose 140 mg/dL (65-110); Magnesium 2.2 mg/dL (1.6-2.3); Potassium 4.1 mmol/L (3.4-5.0); Sodium 136 mmol/L (137-145)
[2021-09-10 07:00] LABS: Immunoglobulin A 223 mg/dL (70-400); Immunoglobulin G 666 mg/dL (700-1600); Immunoglobulin M 100 mg/dL (40-230)
[2021-09-10] MEDS: lisinopriL 20 MG TABLET PO (08:50)
[2021-09-10] MEDS: predniSONE 20 MG TABLET 40 MG PO (08:50)
[2021-09-10] MEDS: PANTOPRAZOLE 40 MG TABLET PO (08:50)
[2021-09-10] MEDS: NICOTINE (*PBKC) 21 MG PATCH 1 PATCH TRANSDERM (08:50)
[2021-09-10] MEDS: FUROSEMIDE INJ 40 MG/4 ML VIAL 20 MG IV PUSH (08:51)
[2021-09-10] MEDS: PSYLLIUM POWDER PACKET 1 PACKET PO (08:51)
[2021-09-10] MEDS: ENOXAPARIN 40 MG/0.4 ML SYRINGE SUB-Q (08:52)
[2021-09-10] MEDS: DOCUSATE SODIUM 100 MG CAPSULE PO (09:02)
[2021-09-10 09:05] LABS: NT Pro B Type Natriuretic Pept 192 pg/mL (5-100)
--- NOTE | 2021-09-10 09:15 | PM.PNPUL ---
Progress Note: A&P Assessment and Plan (1) Obesity hypoventilation syndrome: Code(s): E66.2 - Morbid (severe) obesity with alveolar hypoventilation Status: Acute Assessment and Plan: 09/09 Patient with morbid obesity with a BMI of 55.6 And resting blood gas on 3 L nasal cannula 7.36/50/56 indicating that she does have obesity hypoventilation syndrome. the patient would benefit from noninvasive ventilation to prevent disease progression and prevent further hospitalizations. Of note patient has a normal TSH on 09/08/2021 of 0.775. I will initiate noninvasive ventilation with BiPAP and if she does not tolerate BiPAP I will convert her to noninvasive ventilator with an AVAPS mode. Patient also has severe hypoxemia at night on room air with saturations less than or equal to 88% at 408 minutes or 100% of the monitored time last night. I will place her on 35% FiO2 and repeat an overnight oximetry on her noninvasive ventilation with this setting. I explained to her that she must lose weight. I will obtain an echocardiogram to assess her LV function, valvular function, right ventricular size and function and perform a bubble study to assess for a right to left shunt given she has been hypoxic for many years. 09/10 Patient wore her noninvasive ventilator with the AVAPS mode overnight and said that she got the best sleep she has had in the last few years. Patient had an ABG prior to removal of the AVAPS mode with a pH of 7.35/64/84. Patient an overnight oximetry on 35% FiO2 on the above settings with time of saturation less than or equal to 88% at 4 minutes. With an average saturation of 93%. Patient still remains with a compensated chronic respiratory acidosis at night on the a VATS and I will increase her respiratory rate to 20 and increase her tidal volume to 550 and check a blood gas in the morning Prior to removal of the machine. Continue FiO2 at 35%. (2) Asthma: Code(s): J45.909 - Unspecified asthma, uncomplicated Status: Acute Assessment and Plan: 09/09 The patient has a lifelong history of 2-3 episodes of upper respiratory tract infections -wheezing -shortness of breath all her life. She has been told she has asthma as well as COPD. she had no eosinophilia on presentation with a white blood cell count of 10.6 in a eosinophil count of 1.3%=138/uL. I see no bullous emphysema on her CT scan of the chest. She has no wheezing today. At this time I will continue to treat her for an asthma exacerbation and will change her to prednisone 40 mg a day. I will continue albuterol 2.5 mg nebulized q.6 hours and ipratropium 0.5 mg nebulized q.6 hours. she has no phlegm production, and I feel no need for antibiotics at this time. I will send a hypersensitivity pneumonitis panel is she has a history of exposure to black mold as well as IgG, IgA, IgM and IgE levels as she has recurrent bouts of possible respiratory tract infections throughout her life. She has no evidence of interstitial lung disease, post COVID interstitial lung disease or organizing pneumonia on her CT scan from 08/29/2021. obesity hypoventilation, untreated sleep apnea, morbid obesity, are likely all contributing to this patient's worsening respiratory condition over the last 2-3 months. 09/10 Patient states her breathing is about the same today. She is on prednisone 40 mg a day, today is day 4 of steroids. I will discontinue her albuterol and ipratropium nebulizers today. Patient carries a diagnosis of COPD as well as asthma and I will place her on inhaled corticosteroid, long-acting beta agonist and long-acting muscarinic antagonist and have ordered trilogy 200-62.5-25 at 1 puff q.day and Rescue albuterol inhaler 2 puffs q.i.d. p.r.n. hypersensitivity pneumonitis and immunoglobulin levels are pending. Patient is convinced she has sarcoid although there is no evidence of Mediastinal lymphadenopathy, interstitial infiltrates or
--- NOTE | 2021-09-10 09:48 | WPDCDIQUERY2 ---
CDI Query Clarification Request 09/10 -Asthma documented per Pulmonology: - Patient carries a diagnosis of COPD as well as asthma and I will place her on inhaled corticosteroid, long-acting beta agonist and long-acting muscarinic antagonist and have ordered trilogy 200-62.5-25 at 1 puff q.day and Rescue albuterol inhaler 2 puffs q.i.d. p.r.n. hypersensitivity pneumonitis and immunoglobulin levels are pending. Please verify if Asthma has been ruled in or ruled out
--- NOTE | 2021-09-10 10:07 | PM.IMPN ---
Progress Note: A&P Additional Plan 45-year-old female with past medical history significant for tobacco dependence, COPD/emphysema, morbid obesity, hypertension, presented with hypoxia, SOB. 1)Acute Hypoxic Resp Failure: Likely combination of obseity hypoventilation+Astham C/w O2 support Appreciate Pulmonary consult Further recs as per pulmonary service c/w steroids increase dose of lasix to 40 mg IV Obtain echo smoking cessation counseling improving leucocytosis, likely secondary to steroids, will monitor Will likely need O2 upon discharge 2)DVT ppx: Lovenox 3)Code:Full 4)Dispo:pending improvement in hypoxia Time Spent With Patient Time with patient: 25 - 35 minutes Subjective Date/time seen: 09/10/21 10:07 Interval history: no acute events overnight, no major change clinically Review of Systems Review of Systems: All systems reviewed & are unremarkable except as noted in HPI and below Constitutional: Constitutional: Reports no additional constitutional complaints Eyes: Eyes: Reports no additional eye complaints ENT: Reports system reviewed and no additional complaints, except as documented Cardiovascular: Cardiovascular: Reports no additional cardiovascular complaints Respiratory: Respiratory: Reports dyspnea Gastrointestinal: Gastrointestinal: Reports no additional gastrointestinal complaints Neurologic: Reports system reviewed and no additional complaints, except as documented Endocrine: Endocrine: Reports as per HPI Hematologic/Lymphatic: Hematologic/Lymphatic: Reports no additional hematologic/lymphatic complaints Exam Const: General: no acute distress Nutritional Appearance: obese Orientation/consciousness: patient oriented x3 Limitations: no limitations HENMT: Mouth: Yes Normal oral and palatal mucosa present and Yes moist mucous membranes Eyes: General: appearance normal, both eyes and all related structures Sclera: sclerae normal Neck: Neck: supple Chest: Other: B/l decreased breath sounds, occasional wheezing+ Cardio: Rate: regular rate Rhythm: regular rhythm Heart sounds: S1 normal heart sound present and S2 normal heart sound present GI: GI Palp: Yes Soft to palpation Auscultation: normal bowel sounds Skin: General skin exam: normal color Neuro: General: patient oriented x3 Objective Data Vital Signs Vital Signs: Vital Signs - 24 hr 09/09/21 14:00 09/09/21 15:23 09/09/21 15:31 Temperature 97.8 F Pulse Rate 85 80 77 Respiratory Rate 19 18 18 Blood Pressure 151/80 H Pulse Oximetry 90 09/09/21 16:13 09/09/21 20:31 09/09/21 20:42 Temperature Pulse Rate 73 77 78 Respiratory Rate 19 18 18 Blood Pressure Pulse Oximetry 96 90 09/09/21 22:00 09/09/21 23:01 09/10/21 00:19 Temperature 97.7 F Pulse Rate 85 70 Respiratory Rate 22 H 24 H Blood Pressure 149/76 H Pulse Oximetry 91 91 91 09/10/21 03:33 09/10/21 06:00 09/10/21 09:16 Temperature 97.5 F L Pulse Rate 66 66 Respiratory Rate 21 H 20 Blood Pressure 146/90 H Pulse Oximetry 96 96 99 Intake/Output Intake/Output: Intake & Output 09/07/21 09/08/21 09/09/21 09/10/21 23:59 23:59 23:59 23:59 Intake Total 720 1330 1070 840 Output Total 1600 1450 Balance -880 -120 1070 840 Meds/Results Medications: Active Medications Generic Name Dose Route Start Last Admin Trade Name Freq PRN Reason Stop Dose Admin Acetaminophen 650 mg 09/07/21 02:54 09/09/21 08:53 Acetaminophen 325 Mg Tablet PO 650 mg Q4H PRN Administration Mild Pain (1-3) or Fever Albuterol 2 puff 09/10/21 09:26 Albuterol Sulfate (*Sp) Aerosol 1 Puff INHALATION QIDRT PRN Shortness Of Breath Docusate Sodium 100 mg 09/08/21 12:40 09/10/21 09:02 Docusate Sodium 100 Mg Capsule PO 100 mg Q12HR SIMON Administration Enoxaparin Sodium 40 mg 09/07/21 10:10 09/10/21 08:52 Enoxaparin 40 Mg/0.4 Ml Syringe SUB-Q 40 mg DAILY SIMON Administration Fluticasone/Umecli
[2021-09-10] MEDS: IBUPROFEN 600 MG TABLET PO ×2 (11:23→16:44)
[2021-09-10] MEDS: FLUTICASONE/UMECLIDIN/VILANTER 200-62.5-25 MCG ELLIPTA 1 PUFF INHALATION (13:35)
[2021-09-10] MEDS: LORazepam INJ (*CRX) 2 MG/ML VIAL 0.5 MG IV PUSH (14:23)
[2021-09-10 15:12] LABS: Influenza Control Positive
[2021-09-10 17:14] LABS: Pneumococcal Antigen Urine Not Detected (Not Detected)
[2021-09-11] VITALS (10 sets, daily range): BP systolic 121–149; BP diastolic 65–87; PULSE 65–96; RESP 16–26; TEMP 36.1–36.5; O2SAT 86–95
[2021-09-11 05:22] LABS: Alveolar/Arterial O2 Gradient 88.9 mmHg; Base Excess ABG 10.2 mEq/l (+/-2.0); Fractional Inspired Oxygen 35 %; HCO3 ABG 38.5 mEq/l (22.0-26.0); Oxygen Content ABG 21.4 %vol (16.0-22.0); Oxygen Saturation ABG 95.8 % (95.0-100.0); Oxyhemoglobin 95.1 % THb (90.0-100.0); PO2 ABG 83.6 mmHg (80.0-100.0); PO2 FiO2 Ratio Arterial Blood 2.39 %; pH ABG 7.382 (7.350-7.450)
[2021-09-11 05:23] LABS: Modified Allen's Test Pass; PCO2 ABG 66.3 mmHg (35.0-45.0); Site Drawn RIGHT RADIAL
[2021-09-11 05:25] LABS: Device NON-INVASIVE VENT; Non-Invasive Vent Rate 20 /MIN
[2021-09-11 06:30] LABS: Basophils Absolute Auto 0.1 K/mm3 (0.0-0.1); Basophils Percent Auto 0.6 % (0.2-1.2); Eosinophils Absolute Auto 0.1 K/mm3 (0-0.3); Eosinophils Percent Auto 0.8 % (0-4.4); Hematocrit 52.6 % (37.0-47.0); Hemoglobin 16.1 g/dL (12.0-15.0); Immature Granulocyte Absolute 0.08 K/mm3 (0.00-0.031); Lymphocytes Absolute Auto 1.92 K/mm3 (0.9-3.2); Lymphocytes Percent Auto 23.1 % (18.3-44.2); Mean Corpuscular HGB Conc 30.6 g/dl (32-36); Mean Corpuscular Hemoglobin 29.8 pg (26-34); Mean Corpuscular Volume 97.4 fl (80-100); Mean Platelet Volume 10.7 fl (7.4-10.4); Monocytes Absolute Auto 0.8 K/mm3 (0.1-0.6); Monocytes Percent Auto 9.6 % (2.6-8.5); Neutrophils Absolute Auto 5.4 K/mm3 (1.3-6.7); Neutrophils Percent Auto 64.9 % (45.5-73.1); Platelet Count Result 227 k/mm3 (150-375); Red Cell Distribution Width 14.5 % (11.5-14.5); White Blood Count 8.3 K/mm3 (4.5-10.0)
[2021-09-11 06:32] LABS: Anion Gap 1 mmol/L (8-16); Blood Urea Nitrogen 36 mg/dL (7-17); Calcium 8.4 mg/dL (8.4-10.2); Carbon Dioxide 36 mmol/L (22-30); Chloride 95 mmol/L (98-107); Estimated CRCL calculation 133 ml/min; Estimated Glomerular Filt Rate > 60; Glucose 98 mg/dL (65-110); Potassium 3.9 mmol/L (3.4-5.0); Sodium 132 mmol/L (137-145)
[2021-09-11] MEDS: FLUTICASONE/UMECLIDIN/VILANTER 200-62.5-25 MCG ELLIPTA 1 PUFF INHALATION (07:53)
[2021-09-11] MEDS: traMADol HCL (*CRX) 50 MG TABLET PO ×2 (08:27→16:14)
[2021-09-11] MEDS: IBUPROFEN 600 MG TABLET PO ×2 (08:27→16:14)
[2021-09-11] MEDS: predniSONE 20 MG TABLET 40 MG PO (08:27)
[2021-09-11] MEDS: LORazepam INJ (*CRX) 2 MG/ML VIAL 0.5 MG IV PUSH ×2 (08:28→16:14)
[2021-09-11] MEDS: PSYLLIUM POWDER PACKET 1 PACKET PO (08:28)
[2021-09-11] MEDS: PANTOPRAZOLE 40 MG TABLET PO (08:28)
[2021-09-11] MEDS: lisinopriL 20 MG TABLET PO (08:28)
[2021-09-11] MEDS: NICOTINE (*PBKC) 21 MG PATCH 1 PATCH TRANSDERM (08:28)
[2021-09-11] MEDS: ENOXAPARIN 40 MG/0.4 ML SYRINGE SUB-Q (08:28)
[2021-09-11] MEDS: FUROSEMIDE INJ 40 MG/4 ML VIAL IV PUSH (08:28)
--- NOTE | 2021-09-11 10:17 | PM.PNPUL ---
Progress Note: A&P Assessment and Plan (1) Obesity hypoventilation syndrome: Code(s): E66.2 - Morbid (severe) obesity with alveolar hypoventilation Status: Acute Assessment and Plan: 09/09 Patient with morbid obesity with a BMI of 55.6 And resting blood gas on 3 L nasal cannula 7.36/50/56 indicating that she does have obesity hypoventilation syndrome. the patient would benefit from noninvasive ventilation to prevent disease progression and prevent further hospitalizations. Of note patient has a normal TSH on 09/08/2021 of 0.775. I will initiate noninvasive ventilation with BiPAP and if she does not tolerate BiPAP I will convert her to noninvasive ventilator with an AVAPS mode. Patient also has severe hypoxemia at night on room air with saturations less than or equal to 88% at 408 minutes or 100% of the monitored time last night. I will place her on 35% FiO2 and repeat an overnight oximetry on her noninvasive ventilation with this setting. I explained to her that she must lose weight. I will obtain an echocardiogram to assess her LV function, valvular function, right ventricular size and function and perform a bubble study to assess for a right to left shunt given she has been hypoxic for many years. 09/10 Patient wore her noninvasive ventilator with the AVAPS mode overnight and said that she got the best sleep she has had in the last few years. Patient had an ABG prior to removal of the AVAPS mode with AVAPS mode with a respiratory rate of 14, tidal volume 500, EPAP 8, minimal inspiratory pressure 9, maximal inspiratory pressure 25, inspiratory time 1.0, rise 3 and a pH of 7.35/64/84. Patient an overnight oximetry on 35% FiO2 on the above settings with time of saturation less than or equal to 88% at 4 minutes. With an average saturation of 93%. Patient still remains with a compensated chronic respiratory acidosis at night on the a VATS and I will increase her respiratory rate to 20 and increase her tidal volume to 550 and check a blood gas in the morning Prior to removal of the machine. Continue FiO2 at 35%. TSH is 0.775 on 09/08/202109/11 Patient wore Hospital noninvasive ventilator with AVAPS mode overnight and again slept very well. Patient on AVAPS mode with a respiratory rate of 20, tidal volume 550, EPAP 8, minimal inspiratory pressure 9, maximal inspiratory pressure 25, inspiratory time 1.0, rise 3 and a pH of 7.38/66/84. Although patient still has a high CO2 at 66 at the end of the night on her settings her pH has increased to 7.38. At this time I will continue to work towards a home noninvasive ventilator with the above mentioned settings at a rate of 20 and a tidal volume of 550. I spoke with the correspondence coordinator and given patient's lack of insurance is anticipated that it may take a few weeks to set her up on a home noninvasive ventilator. (2) Asthma: Code(s): J45.909 - Unspecified asthma, uncomplicated Status: Acute Assessment and Plan: 09/09 The patient has a lifelong history of 2-3 episodes of upper respiratory tract infections -wheezing -shortness of breath all her life. She has been told she has asthma as well as COPD. she had no eosinophilia on presentation with a white blood cell count of 10.6 in a eosinophil count of 1.3%=138/uL. I see no bullous emphysema on her CT scan of the chest. She has no wheezing today. At this time I will continue to treat her for an asthma exacerbation and will change her to prednisone 40 mg a day. I will continue albuterol 2.5 mg nebulized q.6 hours and ipratropium 0.5 mg nebulized q.6 hours. she has no phlegm production, and I feel no need for antibiotics at this time. I will send a hypersensitivity pneumonitis panel is she has a history of exposure to black mold as well as IgG, IgA, IgM and IgE levels as she has recurrent bouts of possible respiratory tract infections throughout her life. She has no evidence of interstitial lung disea
--- NOTE | 2021-09-11 14:39 | HOMEO2EVAL ---
Evaluation was performed at [facility] Home Oxygen Evaluation RC: Home Oxygen (O2) Evaluation Start: 09/11/21 14:35 Freq: Status: Active Protocol: RPE Activity Type Activity Date Activity User E-Sign Co-Sign Detail Recorded Client Recorded Date Recorded By Document 09/11/21 14:00 [email or web address] [email or web address] 09/11/21 14:39 KMV Document 09/11/21 14:05 [email or web address] [email or web address] 09/11/21 14:39 KMV Document 09/11/21 14:10 [email or web address] [email or web address] 09/11/21 14:39 KMV Document 09/11/21 14:15 [email or web address] 09/11/21 14:39 KMV Document 09/11/21 14:20 [email or web address] 09/11/21 14:39 KMV Document 09/11/21 14:35 [email or web address] [email or web address] 09/11/21 14:39 KMV 09/11/21 09/11/21 09/11/21 14:00 14:05 14:10 Home O2 Evaluation Test Phase Resting Resting Exercise Oxygen Delivery Room Air Nasal Cannula Nasal Cannula Oxygen Flow Rate (L/min) 1 1 Pulse Oximetry (90-100 %) 88 L 90 86 L Pulse Rate (60-100 beats/min) 72 70 80 Activity Tolerance Ambulation Distance (feet) Ambulation Distance (meters) Treatment Charges O2 Evaluation - Inpatient 09/11/21 09/11/21 09/11/21 14:15 14:20 14:35 Home O2 Evaluation Test Phase Exercise Exercise Resting Oxygen Delivery Nasal Cannula Nasal Cannula Nasal Cannula Oxygen Flow Rate (L/min) 2 3 1 Pulse Oximetry (90-100 %) 88 L 91 90 Pulse Rate (60-100 beats/min) 80 86 71 Activity Tolerance Good Ambulation Distance (feet) 700 Ambulation Distance (meters) 213.34 Treatment Charges
--- NOTE | 2021-09-11 15:17 | PM.DS ---
DS: Admitting Diagnosis Discharge Date 09/11/2021 Admitting Diagnosis shortness of breath /hypoxia DS: Discharge Diagnosis Discharge Diagnosis (1) Respiratory failure with hypoxia: Code(s): J96.91 - Respiratory failure, unspecified with hypoxia Status: Acute Assessment and Plan: -Likely secondary to tobacco dependence (daily smoker), COPD/emphysema, morbid obesity, s/p COVID infection, toxic inhalation/mold exposure. -Currently on 3 L of oxygen by nasal cannula, does not wear home oxygen - patient placed on continuous pulse oximetry -Likely COPD exacerbation. but rule out other unlikely causes as this is her repeat admission for SOB and dyspnea. -having SOB and dyspnea due to mold in her home, water in her AC system in her home, gaining the recent 75 pounds, having multiple episodes of COVID per patient report, self-diagnosis of sarcoidosis, her continued smoking, stress related to her marriage ending and her mother/brother's health deterioration. She was gently diuresed the her BNP was only mildly elevated but does endorse pitting edema in bilateral lower extremities. Pulmonary was consulted and suggest Pancho has possible COPD/asthma along with obesity hypoventilation syndrome causing chronic hypercarbic respiratory failure. She was planned to be started on AVAPS treatment however since she does not have any health insurance this would be challenging. However the process has started and may take few weeks before she can get this. She will continue on oxygen until then and follow-up closely with Pulmonary Clinic. She was evaluated by respiratory therapy for home oxygen evaluation and required 3 L with activity. Oxygen was arranged at the time of discharge. She has also been applied to the health insurance plan and currently is pending at the time of discharge. She is provided with trilogy inhaler samples by a Pulmonary team for until she follows up with them. She will follow up with PCP Cost has been an issue for her to get her medications. (2) COPD (chronic obstructive pulmonary disease) with emphysema: Code(s): J43.9 - Emphysema, unspecified Status: Acute Assessment and Plan: -Breathing treatments q6 hrs, ordered DUONEBS -started on Advair and Mucinex. -Solumedrol 60 mg IV q6hr -WBC is up from 10 to 16 today, No fevers, likely from steroids, continue watching. -supplemental oxygen as needed -stop smoking immediately -needs routine follow up with a ship surveyor. Consulted ship surveyor. -reduce physical stress and mental stress -self treats her hypoxia by taking 1200mg of Ibuprofen daily because that is the only thing that makes me feel better and breathe better. -educated the patient about the concerning side effects of taking large daily ibuprofen doses and that the ibuprofen is not improving her COPD. -needs a full outpatient sleep study - ordered Apnea test for overnight here Which came back negative Prednisone taper for 5 more days at discharge (3) Tobacco dependence: Code(s): F17.200 - Nicotine dependence, unspecified, uncomplicated Status: Acute Assessment and Plan: -Patient is down to half pack a day from 3 packs previous -nicotine patch available as needed -stop smoking immediately -needs routine follow up with a ship surveyor. (4) Morbid obesity with BMI of 45.0-49.9, adult: Code(s): E66.01 - Morbid (severe) obesity due to excess calories; Z68.42 - Body mass index [BMI] 45.0-49.9, adult Status: Acute Assessment and Plan: -Lifestyle and diet modifications -weight loss -increase activity and ambulation throughout the day (5) Chronic pain: Code(s): G89.29 - Other chronic pain Status: Acute (6) Obesity hypoventilation syndrome: Code(s): E66.2 - Morbid (severe) obesity with alveolar hypoventilation Status: Acute (7) Asthma: Code(s): J45.909 - Unspecified asthma, uncomplicated Status:
[2021-09-11 16:33] LABS: Magnesium 2.3 mg/dL (1.6-2.3)
[2021-09-12 01:22] LABS: Legionella pneumophila Ag Ur Not Detected (Not Detected)
[2021-09-13 16:35] LABS: Immunoglobulin E 236 kU/L (<=114)
== END 2021-09-11 18:40 | disposition home or self-care (01) | DRG 140 ==
LOC: ANHED 09-07 00:15 → ANH3MED 09-07 03:53 → ANH3MEDSUR 09-08 17:52
PROVIDERS: Internal Medicine; Internal Medicine Pulmonary Disease; Nurse Practitioner; Physician Assistant; Admitting Provider Internal Medicine; Emergency Provider Emergency Medicine; PCP Student in an Organized Health Care Education/Training Program; Visit Provider Internal Medicine
DX: J43.9 Emphysema, unspecified (principal); I10 Essential (primary) hypertension; Z79.899 Other long term (current) drug therapy; Z79.51 Long term (current) use of inhaled steroids; Z88.0 Allergy status to penicillin; J96.01 Acute respiratory failure with hypoxia; F17.200 Nicotine dependence, unspecified, uncomplicated; Z59.89 Other problems related to housing and economic circumstances; Z77.120 Contact with and (suspected) exposure to mold (toxic); R60.1 Generalized edema; E66.2 Morbid (severe) obesity with alveolar hypoventilation; Z68.43 Body mass index [BMI] 50.0-59.9, adult; Z86.16 Personal history of COVID-19; G89.29 Other chronic pain; D86.0 Sarcoidosis of lung; J96.12 Chronic respiratory failure with hypercapnia
CPT/HCPCS: 36415; 36600; 71046; 80048; 80053; 82306; 82784; 82785; 82805; 83735; 83880; 84100; 84145; 84443; 84484; 85025; 85380; 85652; 86140; 86331; 86606; 86609; 87070; 87205; 87449; 87804; 87899; 93005; 94002; 94003; 94618; 94640; 94762; 96361; 96372; 96374; 96375; 96376; 99285; A9270; C8929; G0378; G0379; J1650; J1940; J2060; J2405; J2930; J7030; J7040; J7512; Q9957

== ENCOUNTER 2021-10-30 16:26 | Outpatient (CLI) | payer MEDICAID, SELFPAY ==
[2021-11-04 08:12] LABS: Immunoglobulin A 204 mg/dL (47-310); Immunoglobulin G 682 mg/dL (600-1640); Immunoglobulin M 85 mg/dL (50-300)
== END 2021-10-30 16:27 | disposition home or self-care (01) ==
LOC: ANHLAB 16:28
PROVIDERS: PCP Student in an Organized Health Care Education/Training Program; Visit Provider Internal Medicine Pulmonary Disease
DX: J45.909 Unspecified asthma, uncomplicated (principal)
CPT/HCPCS: 36415; 82784

== ENCOUNTER 2021-12-23 21:04 | Emergency (ER) | payer SELFPAY ==
[2021-12-23 21:11] VITALS: BP 186/102; PULSE 98; RESP 24; TEMP 36.3; O2SAT 95
[2021-12-23 22:09] VITALS: BP 154/99; PULSE 86; RESP 16; O2SAT 97
--- NOTE | 2021-12-23 22:26 | ED.RECABL ---
HPI - Recheck/Abnormal Lab/Rx General Chief Complaint: Recheck/Abnormal Lab/Rx <Valerie Carson PA-C - Last Filed: 12/24/21 03:03> Stated Complaint: high blood pressure <Valerie Carson PA-C - Last Filed: 12/24/21 03:03> Time Seen by Provider: 12/23/21 21:33 <YAZAN Finch Last Filed: 12/24/21 03:03> Source: patient <Valerie Carson PA-C - Last Filed: 12/24/21 03:03> Mode of arrival: ambulatory <YAZAN Finch Last Filed: 12/24/21 03:03> Limitations: no limitations <YAZAN Finch Last Filed: 12/24/21 03:03> History of Present Illness HPI narrative: Patient is 46-year-old female who presents the ED for medication refill. Patient reports she was out of town this weekend and misplaced her blood pressure medication. She takes lisinopril 20 mg daily. She has not taken this yesterday or today. She did not have any further refills from the pharmacy and states she was unable to see her PCP until mid January. She developed a mild headache today, which prompted her to come to the ED. She took ibuprofen at home and denies any headache currently. Denies any chest pain, difficulty breathing, fever, chills, abdominal pain, nausea, vomiting, vision changes, dizziness, lightheadedness, weakness, urinary symptoms. <Valerie Carson PA-C - Last Filed: 12/24/21 03:03> Related Data Home Medications: Home Medications Medication Instructions Recorded Confirmed lisinopril 20 mg tablet 20 mg PO DAILY 08/28/21 10/30/21 ibuprofen 600 mg tablet 600 mg PO Q6H PRN Inflammation 09/07/21 10/30/21 <YAZAN Finch Last Filed: 12/24/21 03:03> Allergies/Adverse Reactions: Allergies Allergy/AdvReac Type Severity Reaction Status Date / Time Penicillins Allergy Unknown Other Verified 12/23/21 22:09 <YAZAN Finch Last Filed: 12/24/21 03:03> Review of Systems Review of Systems: CONSTITUTIONAL: Denies fever, chills, or sweats. EYES: Denies visual changes. CARDIOVASCULAR: Denies chest pain, palpitations, or edema. RESPIRATORY: Denies dyspnea. GASTROINTESTINAL: Denies abdominal pain, nausea, vomiting. GENITOURINARY: Denies dysuria or hematuria. MUSCULOSKELETAL: Denies back pain. NEUROLOGIC: Reports [place], resolved. Denies dizziness, lightheadedness, tingling, numbness, or weakness. <Valerie Carson PA-C - Last Filed: 12/24/21 03:03> [facility] Past Medical History Medical History: Medical History COPD (chronic obstructive pulmonary disease) with emphysema Hypertension Obesity hypoventilation syndrome <Valerie Carson PA-C - Last Filed: 12/24/21 03:03> Surgical History Surgical History: Surgical History No pertinent past surgical history <Valerie Carson PA-C - Last Filed: 12/24/21 03:03> Family History Family History: Family History Sibling Cerebrovascular accident Other Lung cancer <Valerie Carson PA-C - Last Filed: 12/24/21 03:03> Social History Social History: Social History (Updated 12/23/21 @ 22:43 by Valerie Carson PA-C) Smoking packs per day: 1 Smoking cigarettes per day: 20.0 Years smoked: 20 Smoking pack-years: 20.00 Smoking status: Current every day smoker Tobacco type: cigarettes Alcohol intake: current Drinks per week: 2 Substance use: never Spiritual care concerns: No <Valerie Carson PA-C - Last Filed: 12/24/21 03:03> Exam Narrative: GENERAL: Well appearing, morbidly obese, non-toxic, in no acute distress. HEAD: Normocephalic, atraumatic. EYES: PERRL/EOMI, conjunctivae clear bilaterally. NECK: Supple. No adenopathy, no masses. RESPIRATORY: Airway patent, respirations nonlabored. Clear to auscultation bilaterally, no rales, rhonchi, wheezing. CARDIOVASCULAR: Regular rate and rhythm without murmurs, rubs, or gallops. Peripheral
[2021-12-23 23:15] VITALS: BP 142/83; PULSE 82; RESP 16; O2SAT 95
== END 2021-12-23 23:19 | disposition home or self-care (01) ==
PROVIDERS: Emergency Provider Emergency Medicine; PCP Student in an Organized Health Care Education/Training Program
DX: I10 Essential (primary) hypertension (principal); J44.9 Chronic obstructive pulmonary disease, unspecified; E66.2 Morbid (severe) obesity with alveolar hypoventilation; Z68.42 Body mass index [BMI] 45.0-49.9, adult; F17.210 Nicotine dependence, cigarettes, uncomplicated; T46.4X6A Underdosing of angiotensin-converting-enzyme inhibitors, initial encounter; Z91.138 Patient's unintentional underdosing of medication regimen for other reason
CPT/HCPCS: 99281

== ENCOUNTER 2022-01-27 13:51 | Outpatient (CLI) | payer SELFPAY ==
[2022-01-29 21:50] LABS: Immunoglobulin A 225 mg/dL (47-310); Immunoglobulin G 747 mg/dL (600-1640); Immunoglobulin M 94 mg/dL (50-300)
[2022-01-30 18:27] LABS: Immunoglobulin E 113 kU/L (<=114)
== END 2022-01-27 13:52 | disposition home or self-care (01) ==
LOC: ANHLAB 13:53
PROVIDERS: PCP Student in an Organized Health Care Education/Training Program; Visit Provider Internal Medicine Pulmonary Disease
DX: J45.909 Unspecified asthma, uncomplicated (principal)
CPT/HCPCS: 36415; 82784; 82785

== ENCOUNTER 2022-04-10 13:49 | Emergency (ER) | payer OTHER, SELFPAY ==
--- NOTE | ~2022-04-10 | CT_ITS ---
EXAMINATION: CT brain wo con INDICATION: Headache COMPARISON: None TECHNIQUE: Standard unenhanced head CT. The dose-length product (DLP) was 681.00 mGy-cm. The mA was a djusted according to patient size. Iterative reconstruction technique was employed. FINDINGS: There is no intracranial hemorrhage, acute infarction, or abnormal mass lesion. The ventric les are normal. There is no abnormal mass effect or midline shift. The oakes-white matter differentiat ion is normal. The basal cisterns are patent. The orbits are normal. The paranasal sinuses, mastoids and calvarium are normal. IMPRESSION: 1. No acute intracranial abnormality. Reviewed, dictated and finalized at location B.
--- NOTE | ~2022-04-10 | US_ITS ---
EXAMINATION: US venous doppler [facility] DATE: 04/10/2022 17:21 INDICATION: Bilateral lower limb pain and swelling TECHNIQUE: Hall scale images without and with compression and Doppler images of the bilateral lower e xtremity veins were obtained. COMPARISON: None FINDINGS: The right common femoral vein, profunda femoral vein, femoral vein, popliteal vein, peroneal trunk, p osterior tibial veins, and greater saphenous vein are patent. The left common femoral vein, profunda femoral vein, femoral vein, popliteal vein, peroneal trunk, po sterior tibial veins, and greater saphenous vein are patent. IMPRESSION: 1. Patent bilateral lower extremity veins. No evidence of deep venous thrombosis. Reviewed, dictated and finalized at location B. IMPRESSION: 1. Patent bilateral lower extremity veins. No evidence of deep venous thrombosi s.
--- NOTE | ~2022-04-10 | US_ITS ---
EXAMINATION: US abdomen limited DATE: 04/10/2022 17:27 INDICATION: Right upper quadrant pain TECHNIQUE: Multiple grayscale and Doppler ultrasound images of the abdomen were obtained. COMPARISON: None available FINDINGS: Bowel gas obscures visualization of the pancreas. The liver is normal with normal echogenic ity and echotexture. No surface nodularity. Normal hepatopetal flow in the main portal vein. Stones a re present in the nondistended gallbladder. There is no pericholecystic fluid or gallbladder wall thi ckening. The normal common bile duct measures 6 mm. There was no sonographic Russo sign. IMPRESSION: 1. Cholelithiasis without evidence of cholecystitis. Reviewed, dictated and finalized at location B.
[2022-04-10 14:19] VITALS: BP 146/82; PULSE 94; RESP 18; TEMP 36.6; O2SAT 96
[2022-04-10 16:37] LABS: Basophils Absolute Auto 0.1 K/mm3 (0.0-0.1); Basophils Percent Auto 0.9 % (0.2-1.2); Eosinophils Absolute Auto 0.2 K/mm3 (0-0.3); Eosinophils Percent Auto 1.9 % (0-4.4); Hematocrit 44.7 % (37.0-47.0); Hemoglobin 14.4 g/dL (12.0-15.0); Immature Granulocyte Absolute 0.15 K/mm3 (0.00-0.031); Immature Granulocyte Percent A 1.6 % (0-0.5); Lymphocytes Percent Auto 17.3 % (18.3-44.2); Mean Corpuscular HGB Conc 32.2 g/dl (32-36); Mean Corpuscular Hemoglobin 30.3 pg (26-34); Mean Corpuscular Volume 93.9 fl (80-100); Mean Platelet Volume 9.9 fl (7.4-10.4); Monocytes Absolute Auto 0.7 K/mm3 (0.1-0.6); Monocytes Percent Auto 7.8 % (2.6-8.5); Neutrophils Absolute Auto 6.5 K/mm3 (1.3-6.7); Neutrophils Percent Auto 70.5 % (45.5-73.1); Platelet Count Result 276 k/mm3 (150-375); Red Blood Count 4.76 M/mm3 (4.2-5.4); White Blood Count 9.3 K/mm3 (4.5-10.0)
[2022-04-10 16:38] LABS: Appearance Urine Clear (Clear); Bilirubin Urine Negative (Negative); Blood Urine Negative (Negative); Color Urine Yellow (Yellow); Glucose Urine UA Negative (Negative); Ketones Urine Negative (Negative); Leukocyte Esterase Ur Negative LEU/UL (Negative); Nitrate Urine Negative (Negative); Protein Urine Negative (Negative); Specific Grav Ur <= 1.005 (1.001-1.035); Urobilinogen Urine 0.2 mg/dL (<2.0)
[2022-04-10 16:39] LABS: Add Urine Microscopic? NO
[2022-04-10 16:46] LABS: Alanine Aminotransferase 67 U/L (6-35); Albumin Level 4.3 g/dL (3.5-5.1); Alkaline Phosphatase 115 U/L (38-126); Anion Gap 8 mmol/L (8-16); Aspartate Amino Transferase 82 U/L (14-36); Bilirubin,Total 0.3 mg/dL (0.2-1.3); Blood Urea Nitrogen 17 mg/dL (7-17); Calcium 9.3 mg/dL (8.4-10.2); Carbon Dioxide 28 mmol/L (22-30); Chloride 102 mmol/L (98-107); Estimated CRCL calculation 174 ml/min; Estimated Glomerular Filt Rate > 60; Glucose 143 mg/dL (65-110); Lipase 48 U/L (23-300); Potassium 4.2 mmol/L (3.4-5.0); Sodium 138 mmol/L (137-145)
[2022-04-10 17:09] LABS: NT Pro B Type Natriuretic Pept 58 pg/mL (5-100)
--- NOTE | 2022-04-10 17:16 | ED.GENADULT ---
HPI - General Adult General Chief complaint: Unspecified Stated complaint: abd pain, [place], fatigue, leg pain Time Seen by Provider: 04/10/22 16:42 History of Present Illness HPI narrative: Patient is a 46-year-old female with history of obesity hypoventilation syndrome here for evaluation of multiple medical complaints. Patient first states that she has had bilateral lower extremity cramps and swelling for the past 3 days. She does have a history of DVT in the left leg and states that this feels identical to her previous symptoms. Has not taken any medicine for the pain. Additionally reports an episode several weeks ago where she fell out backwards while she was at [facility]. She states that she has had lightheadedness with standing since then but has not had a syncopal episode. Denies preceding palpitations, chest pain. Additionally notes headaches, neck pain for several months. Again has not taken any medication for the issue. She has not seen her primary care doctor for this issue. Additionally states that she has a gallbladder issue. She does state that she has a history of an alk phos elevation followed by her PCP, has experienced a tingling sensation in her right upper quadrant and her back intermittently for the past week with nausea which is why she thinks she has a gallbladder issue. No chest pain, fevers, numbness in the extremities, seizures, visual changes. Related Data Home Medications Medication Instructions Recorded Confirmed lisinopril 20 mg tablet 20 mg PO DAILY 08/28/21 10/30/21 ibuprofen 600 mg tablet 600 mg PO Q6H PRN Inflammation 09/07/21 10/30/21 Allergies Allergy/AdvReac Type Severity Reaction Status Date / Time Penicillins Allergy Unknown Other Verified 04/10/22 17:52 Review of Systems Review of Systems: Gen: Denies fevers or chills Eyes: Denies eye pain or visual change ENT: Denies congestion Respiratory: Denies shortness of breath or cough CV: Denies chest pain or palpitations GI: Reports abdominal pain, nausea. : denies burning, urgency, frequency or hematuria Musculoskeletal: Reports back pain. Reports lower extremity pain and swelling. Neuro: Denies numbness, tingling, weakness or focal weakness Skin: Denies rash Except as documented, all other systems reviewed and negative [facility] Past Medical History Medical History COPD (chronic obstructive pulmonary disease) with emphysema Hypertension Obesity hypoventilation syndrome Surgical History Surgical History No pertinent past surgical history Family History Family History Sibling Cerebrovascular accident Other Lung cancer Social History Social History (Updated 12/23/21 @ 22:43 by Valerie Quiñones PA-C) Smoking packs per day: 1 Smoking cigarettes per day: 20.0 Years smoked: 20 Smoking pack-years: 20.00 Smoking status: Current every day smoker Tobacco type: cigarettes Alcohol intake: current Drinks per week: 2 Substance use: never Spiritual care concerns: No Exam Narrative: APPEARANCE: Obese. Head: Normocephalic and atraumatic. EYES: PERRLA/EOMI, conjunctivae clear NOSE: No nasal drainage EARS: External ear normal in appearance THROAT: Oropharynx is clear. Mucous membranes are moist. NECK: Supple. No adenopathy, no masses. RESPIRATORY: Airway patent, respirations nonlabored. Clear to auscultation bilaterally, no rales, rhonchi, wheezing. CARDIOVASCULAR: Regular rate and rhythm without murmurs, rubs, or gallops. ABDOMINAL: No abdominal tenderness on exam. Normoactive bowel sounds. Soft, nontender, nondistended. No rebound tenderness or guarding. MUSCULOSKELETAL: Extremities are warm and well-perfused. Moves all extremities well. No edema. NEURO: Normal speech. No focal neurologic deficits. SKIN: Skin is warm and dry
[2022-04-10 17:46] VITALS: BP 173/92; PULSE 82; PULSE 83; RESP 21; O2SAT 96
== END 2022-04-10 18:33 | disposition home or self-care (01) ==
PROVIDERS: Physician Assistant; Emergency Provider Emergency Medicine; PCP Student in an Organized Health Care Education/Training Program
DX: M79.606 Pain in leg, unspecified (principal); R51.9 Headache, unspecified; I10 Essential (primary) hypertension; J44.9 Chronic obstructive pulmonary disease, unspecified; F17.210 Nicotine dependence, cigarettes, uncomplicated; Z79.51 Long term (current) use of inhaled steroids; E66.2 Morbid (severe) obesity with alveolar hypoventilation; Z68.43 Body mass index [BMI] 50.0-59.9, adult
CPT/HCPCS: 36415; 70450; 76705; 80053; 81003; 81025; 83690; 83880; 85025; 93970; 99284

== ENCOUNTER 2022-09-01 21:54 | Emergency (ER) | payer OTHER, SELFPAY ==
[2022-09-01 21:58] VITALS: BP 172/109; PULSE 100; RESP 19; TEMP 36.3; O2SAT 100
--- NOTE | 2022-09-01 22:55 | ED.SKABFB ---
HPI - Skin/Abscess/Foreign Bdy General Chief complaint: Skin/Abscess/Foreign Body Stated complaint: Right sided pain/rash Time Seen by Provider: 09/01/22 22:36 History of Present Illness HPI narrative: 46 y/o F with history of COPD and hypertension reports for a vesicular rash on her abdomen and back for 1 week. Patient states she had doxycycline at home and has been taking it since the onset of rash 1 week ago. She states the pain has gotten so bad, that she decided to come in today. Denies fever, body aches, chills, eye pain, vision changes, rashes anywhere else on her body, purulent drainage. She denies history of shingles. Pt's BP upon admission 172/109. Pt states she thinks she took her BP medications today. Denies headache, vision changes, chest pain, shortness of breath, focal numbness or weakness, AMS. Patient reports she thinks her blood pressure is high secondary to pain Related Data Home Medications Medication Instructions Recorded Confirmed lisinopril 20 mg tablet 20 mg PO DAILY 08/28/21 10/30/21 ibuprofen 600 mg tablet 600 mg PO Q6H PRN Inflammation 09/07/21 10/30/21 Allergies Allergy/AdvReac Type Severity Reaction Status Date / Time Penicillins Allergy Unknown Other Verified 04/10/22 17:52 Review of Systems Review of Systems: CONSTITUTIONAL: Denies fever, chills EYES: Denies visual changes, redness, or discharge. ENT: Denies rhinorrhea, congestion, sore throat, or otalgia. CARDIOVASCULAR: Denies chest pain, palpitations, or edema. RESPIRATORY: Denies cough or dyspnea. GASTROINTESTINAL: Denies abdominal pain, nausea, vomiting, or diarrhea. GENITOURINARY: Denies dysuria or hematuria. SKIN: See HPI MUSCULOSKELETAL: Denies back pain, joint pain, or myalgia. NEUROLOGIC: Denies headache, numbness, dizziness, or weakness. PSYCHIATRIC: Denies anxiety or depression. [facility] Past Medical History Medical History COPD (chronic obstructive pulmonary disease) with emphysema Hypertension Obesity hypoventilation syndrome Surgical History Surgical History No pertinent past surgical history Family History Family History Sibling Cerebrovascular accident Other Lung cancer Social History Social History Smoking packs per day: 1 Smoking cigarettes per day: 20.0 Years smoked: 20 Smoking pack-years: 20.00 Smoking status: Current every day smoker Tobacco type: cigarettes Alcohol intake: current Drinks per week: 2 Substance use: never Spiritual care concerns: No Exam Narrative: GENERAL: Well-appearing, well-nourished, and in no acute distress. HEAD: Normocephalic, atraumatic. EYES: PERRLA and EOMI. ENT: Nares clear, no rhinorrhea or epistaxis. Mucous membranes moist. Oropharynx without tonsillar hypertrophy exudate or other lesions. Bilateral TMs pearly oakes nonbulging. No lesions to the external ear, ear canal or nose. NECK: Supple. No adenopathy or masses. No carotid bruits or J.VD CHEST: Clear to auscultation. No respiratory distress. No wheezes rales or rhonchi HEART: Regular rate and rhythm. No murmur heard. Normal peripheral pulses. ABDOMEN: Soft, nontender, nondistended, normal active bowel sounds. EXTREMITIES: Normal range of motion. No edema. SKIN: Vesicular lesions to the upper right lateral abdomen with few scattered vesicular lesions to the right mid back. No purulent drainage. No surrounding erythema. NEURO: No focal deficits. Alert and oriented x3. PSYCH: Normal mood and affect. Course Course Emergency Course: Discussed the case with Dr. Doss who personally evaluated the patient's rash and agrees that it is herpes zoster. She agrees with the plan for discharge home with pain control. Vital Signs Vital signs: Vital Signs Temperature
[2022-09-01] MEDS: HYDROcodone/acetaminophen (*CRX) 10-325 MG TABLET 1 TAB PO (23:11)
[2022-09-01 23:19] VITALS: BP 180/107
[2022-09-01 23:50] VITALS: BP 176/107
--- NOTE | 2022-09-01 23:57 | PC.NURSE ---
Patient requesting to sign out AMA as provider is not okay with discharging patient with elevated blood pressure. Provider aware and spoke with patient at bedside. Patient signed AMA papers and was ambulatory to ED exit.
== END 2022-09-01 23:57 | disposition left against medical advice (07) ==
PROVIDERS: Emergency Provider Physician Assistant; PCP Student in an Organized Health Care Education/Training Program
DX: B02.9 Zoster without complications (principal); I10 Essential (primary) hypertension; J44.9 Chronic obstructive pulmonary disease, unspecified; F17.210 Nicotine dependence, cigarettes, uncomplicated
CPT/HCPCS: 99283; A9270

== ENCOUNTER 2023-02-04 15:20 | Outpatient (CLI) | payer OTHER, SELFPAY ==
[2023-02-04 16:07] LABS: Basophils Percent Auto 0.6 % (0.2-1.2); Eosinophils Absolute Auto 0.1 K/mm3 (0-0.3); Eosinophils Percent Auto 1.4 % (0-4.4); Hematocrit 43.7 % (37.0-47.0); Hemoglobin 14.1 g/dL (12.0-15.0); Immature Granulocyte Absolute 0.05 K/mm3 (0.00-0.031); Immature Granulocyte Percent A 0.8 % (0-0.5); Lymphocytes Absolute Auto 1.33 K/mm3 (0.9-3.2); Lymphocytes Percent Auto 21.2 % (18.3-44.2); Mean Corpuscular HGB Conc 32.3 g/dl (32-36); Mean Corpuscular Hemoglobin 30.3 pg (26-34); Mean Corpuscular Volume 93.8 fl (80-100); Mean Platelet Volume 9.8 fl (7.4-10.4); Monocytes Absolute Auto 0.5 K/mm3 (0.1-0.6); Monocytes Percent Auto 7.2 % (2.6-8.5); Neutrophils Absolute Auto 4.3 K/mm3 (1.3-6.7); Neutrophils Percent Auto 68.8 % (45.5-73.1); Platelet Count Result 308 k/mm3 (150-375); Red Blood Count 4.66 M/mm3 (4.2-5.4); Red Cell Distribution Width 14.4 % (11.5-14.5); White Blood Count 6.3 K/mm3 (4.5-10.0)
[2023-02-04 16:23] LABS: Alanine Aminotransferase 93 U/L (6-35); Albumin Level 4.2 g/dL (3.5-5.1); Alkaline Phosphatase 106 U/L (38-126); Anion Gap 7 mmol/L (8-16); Aspartate Amino Transferase 94 U/L (14-36); Bilirubin,Total 0.4 mg/dL (0.2-1.3); Blood Urea Nitrogen 11 mg/dL (7-17); Calcium 9.1 mg/dL (8.4-10.2); Carbon Dioxide 29 mmol/L (22-30); Chloride 103 mmol/L (98-107); Cholesterol 204 mg/dL (0-200); Estimated Glomerular Filt Rate > 60; Glucose 103 mg/dL (65-110); HDL Direct 48 mg/dL; Potassium 4.1 mmol/L (3.4-5.0); Sodium 139 mmol/L (137-145); Triglycerides 141 mg/dL (<150)
[2023-02-04 16:26] LABS: Rheumatoid Factor 42.2 IU/ML (<12)
[2023-02-04 16:34] LABS: LDL Cholesterol Direct 112 mg/dL
[2023-02-04 17:30] LABS: Erythrocyte Sedimentation Rate 13 mm/hr (0-20)
[2023-02-07 22:48] LABS: Cyclic Citrullinated Peptide 23 Units (<20)
[2023-02-13 12:12] LABS: ANA Cascade Screen Negative
== END 2023-02-04 15:21 | disposition home or self-care (01) ==
LOC: ANHLAB 15:23
PROVIDERS: PCP Student in an Organized Health Care Education/Training Program; Visit Provider Student in an Organized Health Care Education/Training Program
DX: M25.50 Pain in unspecified joint (principal); I10 Essential (primary) hypertension; Z13.220 Encounter for screening for lipoid disorders; Z13.29 Encounter for screening for other suspected endocrine disorder; Z13.228 Encounter for screening for other metabolic disorders; Z13.0 Encounter for screening for diseases of the blood and blood-forming organs and certain disorders involving the immune mechanism; Z68.43 Body mass index [BMI] 50.0-59.9, adult
CPT/HCPCS: 36415; 80053; 80061; 82306; 84443; 85025; 85652; 86038; 86430

== ENCOUNTER 2024-10-10 18:14 | Emergency (ER) | payer OTHER, SELFPAY ==
[2024-10-10] VITALS (10 sets, daily range): BP systolic 102–132; BP diastolic 58–113; PULSE 103–121; RESP 21–37; TEMP 37.6; O2SAT 94–99
--- NOTE | ~2024-10-10 | XR_ITS ---
CHEST RADIOGRAPH, PA AND LATERAL CLINICAL HISTORY: chest pain, short of breath . COMPARISON: 09/07/2021 TECHNIQUE: PA and lateral views of the chest. Lateral view is nondiagnostic. FINDINGS The cardiomediastinal silhouette is enlarged, an interval change. Increased interstitial markings are identified bilaterally, findings suggesting mild pulmonary vascul ar congestion. Limited visualization of the bilateral hemidiaphragms, secondary to patient's seated position and bod y habitus. IMPRESSION: Mild pulmonary vascular congestion. Examination is limited secondary to the patient's seated position and body habitus. Reviewed, dictated and finalized at location A. IMPRESSION: Mild pulmonary vascular congestion. Examination is limited secondary to the patient's seated position and body habi tus.
--- NOTE | ~2024-10-10 | CT_ITS ---
EXAMINATION: CTA chest PE protocol DATE: 10/10/2024 21:57 CDT INDICATION: Shortness of breath and chest pain. TECHNIQUE: Computed tomographic angiography (CTA) of the chest was performed with 100 mL Omnipaque-35 0 intravenous contrast. The dose-length product was 1061.83 mGy-cm. Maximum intensity projection 3D-r econstructions of the aorta and other arteries were constructed by the technologist on a separate wor kstation. COMPARISON: 08/29/2021 FINDINGS/OBSERVATIONS: PULMONARY ARTERIES: Contrast opacification of the pulmonary arteries is somewhat limited, possibly se condary to current physiologic state (perhaps patient is currently hyperdynamic). No large filling de fect is identified within the main or proximal pulmonary artery. The main pulmonary artery is not enlarged. THORACIC AORTA: No aneurysmal dilatation or dissection is present. The great vessels are intact LUNGS: Pleural thickening with trace consolidation in the left upper lobe. Calcified pulmonary nodules, consistent with prior granulomatous disease, unchanged from 2021 examina tion. The remainder of the lungs are clear. MEDIASTINUM: No morphologically suspicious or pathologically enlarged lymph nodes are identified with in the mediastinum or bilateral axilla. BONES OF THE CHEST: No acute fracture. No significant degenerative disease. No lytic or blastic lesions. HEART: The heart is borderline enlarged, with a large pericardial effusion, an interval change from examination. IMPRESSION: No large pulmonary embolus. No thoracic aortic dissection. Trace consolidation within the left upper lobe. Interval development of a large pericardial effusion, an interval change from the 2021 examination. These findings were discussed with Dr. Scott at 9:45 PM on 10/10/2024 Reviewed, dictated and finalized at location A. IMPRESSION: No large pulmonary embolus. No thoracic aortic dissection. Trace consolidation within the left upper lobe. Interval development of a large pericardial effusion, an interval change from t 2021 examination. These findings were discussed with Dr. Scott at 9:45 PM on 10/10/2024
--- OUTSIDE RECORDS SUMMARY | 2024-10-10 18:19 | XMS_ITS | Encounter Summary ---
Author Organization [facility] Address [address] [place] [address] Care Team Providers Care Commander Internal Affairs Name Role Phone Harris Bowers DO Primary Care Provider + Encounter Details Date Type Department Care Team (Late st Contact Info) Description 12/31/2022 [employer] Message Enc [facility] [address] [place], [place] [id number] [employer], [facility] Provider Air Quality Message Social History Tobacco Use Types Packs/Day Years Used Date Smoking Tobacco: Every Day Cigarettes 1 20 Smokeless Tobacco: Never Comments:provider to certified drug counselor Alcohol Use Standard Drinks/Week Comments Yes 0 (1 standard drink = 0.6 oz pur e alcohol) AUDIT-C Answer Date Recorded Frequency of Alcohol Consumption Monthly or less 09/14/2018 Average Number of Drinks Not on file 019 Frequency of Binge Drinking Not on file 09/03 PHQ-2 Answer Date Recorded Patient Health Questionnaire-2 Score 0 12/03/2022 Comments No Sex and Gender Information Value Date Recorded Sex Assigned at Female 09/02/2024 11:52 AM FOLLOW UP REP Legal Sex Female 8:06 PM CDT Gender Identity Female 09/02/2024 11:52 AM FOLLOW UP REP Sexual Orientation Not on file COVID-19 Exposure Response Date Recorded In the last 10 days, have yo u been in contact with someone who was confirmed or suspected to have Coronavirus/COVID-19? No / Unsure 12/03/2022 2:23 PM CDT documented as of this encounter Plan of Treatment Upcoming Encounters Date Type Department Care Team (Late st Contact Info) Description 10/26/2024 1:40 PM CDT Laboratory Only [facility] [place] [address] [place] [address] Harris Bowers DO [address] [place] [address] 11/02/2024 1:20 PM CDT Office Visit [facility] [address] [phone] Harris Bowers DO [address] [place] [address] documented as of this encounter Visit Diagnoses Not on filedocumented in this encounter Additional Health Concerns Assessment Noted Time PHQ-9 Depression Total Score: 15 022 12:51 PM CDT documented as of this encounter Care Teams Commander Internal Affairs Relationship Specialty Start Date End Date Harris Bowers DO [address] [place] [address] PCP - General FAMILY PRACTICE 09/14/18 documented as of this encounter
--- OUTSIDE RECORDS SUMMARY | 2024-10-10 18:19 | XMS_ITS | Clinical Summary ---
Author Organization [facility] Address [facility] [place] [address] Care Team Providers Care Patent Prosecution Paralegal Name Role Phone Harris Bowers DO Primary Care Provider + Allergies Active Allergy Reactions Criticality Noted Date Comments Tape Itching,Redness 08/18/2023 Can use paper medical tape Amlodipine Chest pressure,Dizziness,Palpi tations,Shortness of Breath High 12/03/2022 Penicillamine Throat swelling Low 09/14/2018 Penicillins Throat swelling 09/01/2014 Medications albuterol sulfate HFA 108 (90 Base) MCG/ACT inhaler FOUR TIMES DAILY 2 Active INCRUSE ELLIPTA 62.5 MCG/ACT AEROSOL POWDER, BREATH ACTIVATED Inhale 1 puff into the lungs daily. 3 Active venlafaxine XR (EFFEXOR-XR) 37.5 MG 24 hr capsuleIndication s:Menopausal symptom Take 1 capsule (37.5 mg total) by mouth daily. 30 capsule 2 5 Active lisinopril (PRINIVIL) 30 MG tabletIndications :Annual physical exam,Screening for lipid disorders,Screeni ng for endocrine, metabolic and immunity disorder,Essentia l hypertension Take 1 tablet (30 mg total) by mouth daily. 90 tablet 3 5 Active Active Problems Problem Noted Date Diagnosed Date Symptomatic cholelithiasis 10/28/2022 Asthma ([facility]) 02/13/2022 Chronic pain 02/13/2022 Leukocytosis (leucocytosis) 02/13/2022 Pneumonia 02/13/2022 Respiratory failure with hypoxia ([facility]) 02/13/2022 Shortness of breath 02/13/2022 Tobacco dependence 02/13/2022 VALERIA (obstructive sleep apnea) 02/13/2022 Chronic pain of both knees 02/13/2022 Essential hypertension 09/16/2018 Anxiety 09/16/2018 Nonintractable episodic headache, unspecified he adache type 09/16/2018 Resolved Problems Problem Noted Date Diagnosed Date Resolved Date Herpes zoster 12/03/2022 12/03/2022 Calf DVT (deep venous thromb osis) ([facility]) 09/01/2014 08/05/2023 Encounters Date Type Department Care Team Description 09/27/2024 MyChart Message Enc [facility] [address] [phone] Harris Bowers, DO Follow up to conversation about mold illness 09/23/2024 MyChart Message Enc [facility] [address] [phone] Harris Bowers, DO Have pneumonia 09/02/2024 11:20 AM UNDERCUTTER Office Visit [facility] [address] [address] Harris Bowers, DO Fatigue (The patient states she is feeling rundown. The patient states she is hot all the time, emotional and has joint pain, and weight gain. ) 09/02/2024 Travel from Last 3 Months Family History Medical History Relation Comments Alcohol Abuse Brother Hypertension Brother Stroke Brother Cancer Father Hypertension Father Cancer Maternal Grandfather COPD Maternal Grandmother COPD Mother Diabetes Paternal Aunt Relation Status Comments Brother Father Maternal Grandfather Maternal Grandmother Mother Paternal Aunt Social History Tobacco Use Types Packs/Day Years Used Date Smoking Tobacco: Every Day Cigarettes 1 25 Smokeless Tobacco: Never Tobacco Cessation:Ready to Q uit: Yes; Counseling Given: Yes Comments:provider to business and financial counsel- trying to cut down Alcohol Use Standard Drinks/Week Comments Never 0 (1 standard drink = 0.6 oz [...] Sex Assigned at Female 09/02/2024 11:52 AM UNDERCUTTER Legal Sex Female 8:06 PM CDT Gender Identity Female 09/02/2024 11:52 AM UNDERCUTTER Sexual Orientation Not on file Last Filed Vital Signs Vital Sign Reading Time Taken Comments Blood Pressure 114/82 09/02/2024 11:52 AM UNDERCUTTER Pulse 92 09/02/2024 11:52 AM UNDERCUTTER Temperature 36.9 C (98.4 F) 09/02/2024 11:52 AM UNDERCUTTER Respiratory Rate 16 09/02/2024 11:5 2 AM UNDERCUTTER Oxygen Saturation 98% 09/02/2024 11: 52 AM UNDERCUTTER Inhaled Oxygen Concentration - - Weight 158.5 kg (349 lb 6.4 oz) 025 11:52 AM UNDERCUTTER Height 165.1 cm (5' 5 ) 09/02/2024 11:5 2 AM UNDERCUTTER Body Mass Index 58.14 09/02/2024 11:52 AM UNDERCUTTER Plan of Treatment Upcoming Encounters Date Type Department Care Team (Late st Contact Info) Description 10/26/2024 1:40 PM CDT Laboratory Only [facility] [address] [phone] Harris Bowers DO [address] [place] [address] 11/02/2024 1:20 PM CDT Office Visit [facility] [address] [phone] Harris Bowers DO [address] [place] [address] Health Maintenance Due Date Last Done Comments Cervical Cancer Screening Pa p Smear (Age 30 to 64) Every 3 Years 1977 Annual Physical 1980 Cervical Cancer Screening Pa p with HPV Testing (Age 30 to 64) Every 5 Years 12/05/2007 PHQ-2 (Physician [place]) 07/06/2024 12/03/2022 COVID-19 Vaccine (1 - 2023-2 5 season) 2025 Postponed from 03/06 (Patient Refused) Cervical Cancer Screening with HPV 09/02/2025 Postponed from 12/05/2007 (Going to Outside Clinic) DTaP, Tdap and Td Vaccines ( 1 - Tdap) 09/02/2025 Postponed from 12/04 (Patient Refused) Hepatitis B Vaccines (1 of 3 - 19+ 3-dose series) 09/02/2025 Postponed from 12/04 (Patient/Guardian Refusal) Mammogram Screening 09/02/2025 Postpone d from 2017 (Patient Refused) Colorectal Cancer Screening Colonoscopy (10 Years) 09/05/2025 Postponed from (Patient Refused) Pneumococcal Vaccine: Pediat rics (0 to 5 Years) and At-Risk Patients (6 to 64 Years) (1 of 2 - PCV) 09/07/2025 Postponed from 12/04 (Patient Refused) Hepatitis C Completed 02/13/2022 Meningococcal B Vaccine Aged Out No l onger eligible based on patient's age to complete this topic Meningococcal Vaccine Aged Out No aurelio brandie eligible based on patient's age to complete this topic RSV Immunizations Under 20 Months Aged Out No longer eligible based on patient's age to complete this topic Procedures Procedure Name Priority Date/Time Associated Diagnosis Comments HEPATITIS C ANTIBODY Routine 02/13/2022 2:07 PM CDT Annual physical exam Need for hepatitis C screening test Screening for lipid disorders Screening for endocrine, metabolic and immunity disorder from Last 3 Months or Most Recently Relevant to Health Maintenance Results * HEPATITIS C ANTIBODY (02/13/2022 2:07 PM CDT) HEPATITIS C AB NON-REACTI VE NON-REACT JEM 02/13/2022 9:47 PM CDT [facility] Comment: ANTIBODIES TO HCV NOT DETECTED. DOES NOT EXCLUDE THE POSSIBILITY OF EXPOSURE TO HCV. 02/13/2022 2:07 PM CDT Harris Bowers DO LABORATORY Final Re sult [facility] [address] [place] [address], [id number] from Last 3 Months or Most Recently Relevant to Health Maintenance Insurance [employer] Care Teams Patent Prosecution Paralegal Relationship Specialty Start Date End Date Harris Bowers DO [address] [place] [phone] PCP - General FAMILY PRACTICE 09/14/18
--- OUTSIDE RECORDS SUMMARY | 2024-10-10 18:19 | XMS_ITS | Encounter Summary ---
Author Organization [facility] Address [address] [place] [address] Care Team Providers Care Laborer Ammunition Assembly Name Role Phone Harris Bowers DO Primary Care Provider + Encounter Details Date Type Department Care Team (Late st Contact Info) Description 04/08/2022 [employer] Message Enc [facility] Family [facility] [address] [place] [address] Harris Bowers DO [address] [place], [place] [phone] Different symptoms in past week Social History Tobacco Use Types Packs/Day Years Used Date Smoking Tobacco: Every Day Cigarettes 1 20 Smokeless Tobacco: Never Comments:provider to financial health counselor Alcohol Use Standard Drinks/Week Comments Yes 0 (1 standard drink = 0.6 oz pur e alcohol) AUDIT-C Answer Date Recorded Frequency of Alcohol Consumption Monthly or less 09/14/2018 Average Number of Drinks Not on file 019 Frequency of Binge Drinking Not on file 09/03 PHQ-2 Answer Date Recorded PHQ-2 Score - If the patient scores above 3, please move on to questions 3-9 4 02/13/2022 Comments No Sex and Gender Information Value Date Recorded Sex Assigned at Female 09/02/2024 11:52 AM STUDIO OPERATIONS MANAGER Legal Sex Female 8:06 PM CDT Gender Identity Female 09/02/2024 11:52 AM STUDIO OPERATIONS MANAGER Sexual Orientation Not on file documented as of this encounter Progress Notes * Harris Bowers DO - 04/10/2022 1:11 PM CDT Agree that she should go to ER. documented in this encounter Plan of Treatment Upcoming Encounters Date Type Department Care Team (Late st Contact Info) Description 10/26/2024 1:40 PM CDT Laboratory Only [facility] [address] [phone] Harris Bowers DO [address] [place] [address] 11/02/2024 1:20 PM CDT Office Visit [facility] [address] [phone] Harris Bowers DO [address] [place] [address] documented as of this encounter Visit Diagnoses Not on filedocumented in this encounter Additional Health Concerns Assessment Noted Time PHQ-9 Depression Total Score: 15 022 12:51 PM CDT documented as of this encounter Care Teams Laborer Ammunition Assembly Relationship Specialty Start Date End Date Harris Bowers DO [address] [place] [address] PCP - General FAMILY PRACTICE 09/14/18 documented as of this encounter
--- OUTSIDE RECORDS SUMMARY | 2024-10-10 18:19 | XMS_ITS | Clinical Summary ---
Author Organization [facility] Address [address] [place] [address] Care Team Providers Care Radio Script Writer Name Role Phone Harris Bowers Primary Care Provide r Allergies Active Allergy Reactions Criticality Noted Date Comments Penicillins Other (See comments) Low it makes my tongue feel fuzzy Medications azithromycin (ZITHROMAX) 250 mg tablet Take 1 tablet (250 mg total) by mouth daily Take first 2 tablets together, then 1 every day until finished. 6 tablet 07/22/2021 Active lisinopriL (PRINIVIL,ZESTR IL) 20 mg tablet Take 1 tablet (20 mg total) by mouth daily 30 tablet 07/22/2021 Active Surgical History Surgery Date Site/Laterality Comments KNEE ARTHROSCOPY Arthroscopy knee Family History Medical History Relation Name Comments Arthritis Other Family history of Arthritis; Cancer Other Family history of Cancer, unknown; Heart disease Other Family history of Heart problems; Hypertension Other Family history of Hypertension; Lung disease Other Family history of Lung problems; Other Other Family history of Blood clots ( legs or lungs); Seizures Other Family history of Seizure disorder; Stroke Other Family history of Stroke; Relation Name Status Comments Other Social History Tobacco Use Types Packs/Day Years Used Date Smoking Tobacco: Never Assessed Comments Unknown Sex and Gender Information Value Date Recorded Sex Assigned at Not on file Legal Sex Female 3:29 AM APPLIED BEHAVIOR SPECIALIST Gender Identity Not on file Sexual Orientation Not on file Obstetrics History Last Filed Vital Signs Vital Sign Reading Time Taken Comments Blood Pressure 177/106 07/22/2021 5:30 PM APPLIED BEHAVIOR SPECIALIST Pulse 92 07/22/2021 5:30 PM APPLIED BEHAVIOR SPECIALIST Temperature 36.8 C (98.3 F) 07/22/2021 2:08 PM APPLIED BEHAVIOR SPECIALIST Respiratory Rate 20 07/22/2021 5:30 PM APPLIED BEHAVIOR SPECIALIST Oxygen Saturation 92% 07/22/2021 5:30 PM APPLIED BEHAVIOR SPECIALIST Inhaled Oxygen Concentration - - Weight 149.9 kg (330 lb 7.5 oz) 07/22/2021 2:08 PM APPLIED BEHAVIOR SPECIALIST Height 165.1 cm (5' 5 ) 12/30/2019 8:40 PM CDT Body Mass Index 54.99 12/30/2019 8:40 PM CDT Plan of Treatment Not on file Care Teams Radio Script Writer Relationship Specialty Start Date End Date Harris Bowers DO [address] [place] [address] PCP - General Family Medicine 07/22/21
--- OUTSIDE RECORDS SUMMARY | 2024-10-10 18:19 | XMS_ITS | Encounter Summary ---
Author Organization [facility] Address [address] [place] [address] Care Team Providers Care Bearing Inspector Name Role Phone Harris Bowers DO Primary Care Provider + Encounter Details Date Type Department Care Team (Late st Contact Info) Description 08/24/2023 Mark43 Message Enc [facility] Medical Group General Surgery - [address], [address] [place] [address] Lilibeth Bradley MD 15 [facility] [address] [place] [address] Renee Brownlee Surgery scheduled tomorrow (thursday) Social History Tobacco Use Types Packs/Day Years Used Date Smoking Tobacco: Every Day Cigarettes 1 25 Smokeless Tobacco: Never Comments:provider to certified genetic counselor - trying to cut down Alcohol Use Standard Drinks/Week Comments Not Currently 0 (1 standard drink = 0.6 oz [...] Sex Assigned at Female 09/02/2024 11:52 AM PAINT LABORATORY TECHNICIAN Legal Sex Female 8:06 PM CDT Gender Identity Female 09/02/2024 11:52 AM PAINT LABORATORY TECHNICIAN Sexual Orientation Not on file documented as of this encounter Plan of Treatment Upcoming Encounters Date Type Department Care Team (Late st Contact Info) Description 10/26/2024 1:40 PM CDT Laboratory Only [facility] Family & Internal [address] [address] Harris Bowers DO [address] [place] [address] 11/02/2024 1:20 PM CDT Office Visit [facility] Family Internal [address] [address] Harris Bowers DO [address] [place] [address] documented as of this encounter Visit Diagnoses Not on filedocumented in this encounter Additional Health Concerns Assessment Noted Time PHQ-9 Depression Total Score: 15 022 12:51 PM CDT documented as of this encounter Care Teams Bearing Inspector Relationship Specialty Start Date End Date Harris Bowers DO [address] [place] [address] PCP - General FAMILY PRACTICE 09/14/18 documented as of this encounter
--- OUTSIDE RECORDS SUMMARY | 2024-10-10 18:19 | XMS_ITS | Encounter Summary ---
Author Organization [facility] Address [facility] [place] [address] Care Team Providers Care Coke Wheeler Name Role Phone Harris Bowers DO Primary Care Provider + Encounter Details Date Type Department Care Team (Late st Contact Info) Description 05/04/2023 StayTuned Message Enc [facility] Medical Group Family Medicine - [place] [address] [place] [address] [facility] Provider Screening Social History Tobacco Use Types Packs/Day Years Used Date Smoking Tobacco: Every Day Cigarettes 1 20 Smokeless Tobacco: Never Comments:provider to marriage and family counselor Alcohol Use Standard Drinks/Week Comments Yes [...] Sex Assigned at Female 09/02/2024 11:52 AM TREATING AND PUMPING SUPERVISOR Legal Sex Female 8:06 PM CDT Gender Identity Female 09/02/2024 11:52 AM TREATING AND PUMPING SUPERVISOR Sexual Orientation Not on file documented as of this encounter Plan of Treatment Upcoming Encounters Date Type Department Care Team (Late st Contact Info) Description 10/26/2024 1:40 PM CDT Laboratory Only [facility] Family & Internal Medicine [address] [address] Harris Bowers DO [address] [place] [address] 11/02/2024 1:20 PM CDT Office Visit [facility] Family & Internal [address] [address] Harris Bowers DO [address] [place] [address] documented as of this encounter Visit Diagnoses Not on filedocumented in this encounter Additional Health Concerns Assessment Noted Time PHQ-9 Depression Total Score: 15 022 12:51 PM CDT documented as of this encounter Care Teams Coke Wheeler Relationship Specialty Start Date End Date Harris Bowers DO [address] [place] [address] PCP - General FAMILY PRACTICE 09/14/18 documented as of this encounter
--- OUTSIDE RECORDS SUMMARY | 2024-10-10 18:19 | XMS_ITS | Referral Summary ---
[facility] Address [address] [place] [address] Care Team Providers Care Linemarker Name Role Phone Harris Bowers Primary Care [...] by mouth daily 30 tablet 07/22/2021 Active Social History Tobacco Use Types Packs/Day Years Used Date Smoking Tobacco: Never Assessed Comments Unknown Sex and Gender Information Value Date Recorded Sex Assigned at Not on file Legal Sex Female 3:29 AM FUEL CELL DESIGNER Gender Identity Not on file Sexual Orientation Not on file Last Filed Vital Signs Vital Sign Reading Time Taken Comments Blood Pressure 177/106 07/22/2021 5:30 PM FUEL CELL DESIGNER Pulse 92 07/22/2021 5:30 PM FUEL CELL DESIGNER Temperature 36.8 C (98.3 F) 07/22/2021 2:08 PM FUEL CELL DESIGNER Respiratory Rate 20 07/22/2021 5:30 PM FUEL CELL DESIGNER Oxygen Saturation 92% 07/22/2021 5:30 PM FUEL CELL DESIGNER Inhaled Oxygen Concentration - - Weight 149.9 kg (330 lb 7.5 oz) 07/22/2021 2:08 PM FUEL CELL DESIGNER Height 165.1 cm (5' 5 ) 12/30/2019 8:40 PM CDT Body Mass Index 54.99 12/30/2019 8:40 PM CDT Plan of Treatment Not on file Care Teams Linemarker Relationship Specialty Start Date End Date Harris Bowers DO [address] [place] [address] PCP - General Family Medicine 07/22/21
--- NOTE | 2024-10-10 18:40 | ECG_ITS ---
Test Date: 2024-10-10 18:46:27 Measurements Intervals [place] Rate: 118 P: 19 GA: 145 QRS: 83 QRSD: 96 T: 42 QT: 299 QTc: 419 Interpretive Statements SINUS TACHYCARDIA WITH FREQUENT SUPRAVENTRICULAR PREMATURE COMPLEXES INCOMPLETE RIGHT BUNDLE BRANCH BLOCK LOW QRS VOLTAGE IN PRECORDIAL LEADS BASELINE ARTIFACT- I, II, III, AVR, AVL, AVF, V1, V3-V6 ABNORMAL ECG No previous ECG available for comparison Electronically Signed On 10-10-2024 19:29:46 CDT by Pravin Stewart D.O.
[2024-10-10 18:52] LABS: Hematocrit 40.4 % (37.0-47.0); Hemoglobin 13.3 g/dL (12.0-15.0); Mean Corpuscular HGB Conc 32.9 g/dl (32-36); Mean Corpuscular Hemoglobin 29.5 pg (26-34); Mean Corpuscular Volume 89.6 fl (80-100); Mean Platelet Volume 9.8 fl (7.4-10.4); Platelet Count Result 341 k/mm3 (150-375); Red Blood Count 4.51 M/mm3 (4.2-5.4); Red Cell Distribution Width 13.4 % (11.5-14.5); White Blood Count 26.4 K/mm3 (4.5-10.0)
[2024-10-10 19:08] LABS: Alanine Aminotransferase 29 U/L (6-35); Alkaline Phosphatase 134 U/L (38-126); Anion Gap 10 mmol/L (4-12); Aspartate Amino Transferase 33 U/L (14-36); Bilirubin,Total 2.5 mg/dL (0.2-1.3); Blood Urea Nitrogen 11 mg/dL (7-17); Calcium 8.8 mg/dL (8.4-10.2); Carbon Dioxide 28 mmol/L (22-30); Chloride 89 mmol/L (98-107); Estimated CRCL calculation 137 ml/min; Estimated Glomerular Filt Rate > 60; Glucose 192 mg/dL (65-110); Potassium 4.1 mmol/L (3.4-5.0); Sodium 127 mmol/L (137-145)
--- OUTSIDE RECORDS SUMMARY | 2024-10-10 19:15 | XMS_ITS | Encounter Summary ---
Author Organization [facility] Address [address] [place] [address] Care Team Providers Care Brewmaster Name Role Phone Harris Bowers DO Primary Care Provider + Encounter Details Date Type Department Care Team (Late st Contact Info) Description 04/08/2022 MyCAccelergyt Message Enc [facility] Medical Group Family & Internal Medicine [facility] [address] [place] [address] Harris Bowers DO [address] [place], [place] [phone] Different symptoms in past week Social History Tobacco Use Types Packs/Day Years Used Date Smoking Tobacco: Every Day Cigarettes 1 20 Smokeless Tobacco: Never Comments:provider to developmental training counselor Alcohol Use Standard Drinks/Week Comments Yes [...] Sex Assigned at Female 09/02/2024 11:52 AM TECH WRITER Legal Sex Female 8:06 PM CDT Gender Identity Female 09/02/2024 11:52 AM TECH WRITER Sexual Orientation Not on file documented as of this encounter Progress Notes * Harris Bowers DO - 04/10/2022 1:11 PM CDT Agree that she should go to ER. documented in this encounter Plan of Treatment Upcoming Encounters Date Type Department Care Team (Late st Contact Info) Description 10/26/2024 1:40 PM CDT Laboratory Only [facility] Family & Internal [address] [address] Harris Bowers DO [address] [place] [address] 11/02/2024 1:20 PM CDT Office Visit [facility] Family & Internal [address] [address] Harris Bowers DO [address] [place] [address] documented as of this encounter Visit Diagnoses Not on filedocumented in this encounter Additional Health Concerns Assessment Noted Time PHQ-9 Depression Total Score: 15 022 12:51 PM CDT documented as of this encounter Care Teams Brewmaster Relationship Specialty Start Date End Date Harris Bowers DO [address] [place] [address] PCP - General FAMILY PRACTICE 09/14/18 documented as of this encounter
--- OUTSIDE RECORDS SUMMARY | 2024-10-10 19:15 | XMS_ITS | Clinical Summary ---
[facility] Address [address] [place] [address] Care Team Providers Care Excelsior Cutter Name Role Phone Harris Boewrs Primary Care Provide r Allergies Active Allergy [...] on file Legal Sex Female 3:29 AM BEEF BONER Gender Identity Not on file Sexual Orientation Not on file Obstetrics History Last Filed Vital Signs Vital Sign Reading Time Taken Comments Blood Pressure 177/106 07/22/2021 5:30 PM BEEF BONER Pulse 92 07/22/2021 5:30 PM BEEF BONER Temperature 36.8 C (98.3 F) 07/22/2021 2:08 PM BEEF BONER Respiratory Rate 20 07/22/2021 5:30 PM BEEF BONER Oxygen Saturation 92% 07/22/2021 5:30 PM BEEF BONER Inhaled Oxygen Concentration - - Weight 149.9 kg (330 lb 7.5 oz) 07/22/2021 2:08 PM BEEF BONER Height 165.1 cm (5' 5 ) 12/30/2019 8:40 PM CDT Body Mass Index 54.99 12/30/2019 8:40 PM CDT Plan of Treatment Not on file Care Teams Excelsior Cutter Relationship Specialty Start Date End Date Harris Bowers DO [address] [place] [address] PCP - General Family Medicine 07/22/21
--- OUTSIDE RECORDS SUMMARY | 2024-10-10 19:15 | XMS_ITS | Encounter Summary ---
Author Organization [facility] Address [address] [place] [address] Care Team Providers Care Cook Helper Name Role Phone Harris Bowers DO Primary Care Provider + Encounter Details Date Type Department Care Team (Late st Contact Info) Description 08/24/2023 [employer] Message Enc [facility] Medical Group General Surgery - [address], [address] [place] [address] Lilibeth Bradley MD 15 [facility] [address] [place] [address] Renee Brownlee Surgery scheduled tomorrow (thursday) Social History Tobacco Use Types Packs/Day Years Used Date Smoking Tobacco: Every Day Cigarettes 1 25 Smokeless Tobacco: Never Comments:provider to psychosocial rehabilitation counselor - trying to cut down Alcohol [...] Sex Assigned at Female 09/02/2024 11:52 AM MOLDER MEAT Legal Sex Female 8:06 PM CDT Gender Identity Female 09/02/2024 11:52 AM MOLDER MEAT Sexual Orientation Not on file documented as of this encounter Plan of Treatment Upcoming Encounters Date Type Department Care Team (Late st Contact Info) Description 10/26/2024 1:40 PM CDT Laboratory Only [facility] Family & Internal [address] [address] Harris Bowers DO [address] [place] [address] 11/02/2024 1:20 PM CDT Office Visit [facility] Family Internal [address] [address] Harris Bowers DO [address] [place] [address] documented as of this encounter Visit Diagnoses Not on filedocumented in this encounter Additional Health Concerns Assessment Noted Time PHQ-9 Depression Total Score: 15 022 12:51 PM CDT documented as of this encounter Care Teams Cook Helper Relationship Specialty Start Date End Date Harris Bowers DO [address] [place] [address] PCP - General FAMILY PRACTICE 09/14/18 documented as of this encounter
--- OUTSIDE RECORDS SUMMARY | 2024-10-10 19:15 | XMS_ITS | Encounter Summary ---
Author Organization [facility] Address [facility] [place] [address] Care Team Providers Care Used Car Manager Name Role Phone Harris Bowers DO Primary Care Provider + Encounter Details Date Type Department Care Team (Late st Contact Info) Description 05/04/2023 [employer] Message Enc [facility] Medical Group Family Medicine - [place] [address] [place] [address] [facility] Provider Screening Social History Tobacco Use Types Packs/Day Years Used Date Smoking Tobacco: Every Day Cigarettes 1 20 Smokeless Tobacco: Never Comments:provider to on awake counselor Alcohol Use Standard Drinks/Week Comments Yes [...] Sex Assigned at Female 09/02/2024 11:52 AM WARPER TENDER Legal Sex Female 8:06 PM CDT Gender Identity Female 09/02/2024 11:52 AM WARPER TENDER Sexual Orientation Not on file documented as of this encounter Plan of Treatment Upcoming Encounters Date Type Department Care Team (Late st Contact Info) Description 10/26/2024 1:40 PM CDT Laboratory Only [facility] Family & Internal Medicine [address] [address] Harris Bowers DO [address] [place] [address] 11/02/2024 1:20 PM CDT Office Visit [facility] Family & Internal [address] [address] Harris Bowers DO [address] [place] [address] documented as of this encounter Visit Diagnoses Not on filedocumented in this encounter Additional Health Concerns Assessment Noted Time PHQ-9 Depression Total Score: 15 022 12:51 PM CDT documented as of this encounter Care Teams Used Car Manager Relationship Specialty Start Date End Date Harris Bowers DO [address] [place] [address] PCP - General FAMILY PRACTICE 09/14/18 documented as of this encounter
--- OUTSIDE RECORDS SUMMARY | 2024-10-10 19:15 | XMS_ITS | Referral Summary ---
[facility] Address [address] [place] [address] Care Team Providers Care Print Washer Name Role Phone Harris Bowers Primary Care [...] on file Legal Sex Female 3:29 AM DIRECTOR BUSINESS INTEGRATION Gender Identity Not on file Sexual Orientation Not on file Last Filed Vital Signs Vital Sign Reading Time Taken Comments Blood Pressure 177/106 07/22/2021 5:30 PM DIRECTOR BUSINESS INTEGRATION Pulse 92 07/22/2021 5:30 PM DIRECTOR BUSINESS INTEGRATION Temperature 36.8 C (98.3 F) 07/22/2021 2:08 PM DIRECTOR BUSINESS INTEGRATION Respiratory Rate 20 07/22/2021 5:30 PM DIRECTOR BUSINESS INTEGRATION Oxygen Saturation 92% 07/22/2021 5:30 PM DIRECTOR BUSINESS INTEGRATION Inhaled Oxygen Concentration - - Weight 149.9 kg (330 lb 7.5 oz) 07/22/2021 2:08 PM DIRECTOR BUSINESS INTEGRATION Height 165.1 cm (5' 5 ) 12/30/2019 8:40 PM CDT Body Mass Index 54.99 12/30/2019 8:40 PM CDT Plan of Treatment Not on file Care Teams Print Washer Relationship Specialty Start Date End Date Harris Bowers DO [address] [place] [address] PCP - General Family Medicine 07/22/21
--- OUTSIDE RECORDS SUMMARY | 2024-10-10 19:15 | XMS_ITS | Clinical Summary ---
Author Organization [facility] Address [facility] [place] [address] Care Team Providers Care Boom Tender Name Role Phone Harris Bowers DO Primary [...] Date Diagnosed Date Symptomatic cholelithiasis 10/28/2022 Asthma ([facility]) 02/13/2022 Chronic pain 02/13/2022 Leukocytosis (leucocytosis) 02/13/2022 Pneumonia 02/13/2022 Respiratory failure with hypoxia ([facility]) 02/13/2022 Shortness of breath 02/13/2022 Tobacco dependence 02/13/2022 VALERIA (obstructive sleep apnea) 02/13/2022 Chronic pain of both knees 02/13/2022 Essential hypertension 09/16/2018 Anxiety 09/16/2018 Nonintractable episodic headache, unspecified he adache type 09/16/2018 Resolved Problems Problem Noted Date Diagnosed Date Resolved Date Herpes zoster 12/03/2022 12/03/2022 Calf DVT (deep venous thromb osis) ([facility]) 09/01/2014 08/05/2023 Encounters Date Type Department Care Team Description 09/27/2024 MyChart Message Enc [facility] Family Internal [address] [address] Harris Bowers, DO Follow up to conversation about mold illness 09/23/2024 MyChart Message Enc [facility] Internal [address] [address] Harris Bowers, DO Have pneumonia 09/02/2024 11:20 AM INTERNET SALES REPRESENTATIVE Office Visit [facility] Internal [address] [address] Harris Bowers, DO Fatigue (The patient states [...] uit: Yes; Counseling Given: Yes Comments:provider to addictions counselor- trying to cut down Alcohol Use Standard [...] Sex Assigned at Female 09/02/2024 11:52 AM INTERNET SALES REPRESENTATIVE Legal Sex Female 8:06 PM CDT Gender Identity Female 09/02/2024 11:52 AM INTERNET SALES REPRESENTATIVE Sexual Orientation Not on file Last Filed Vital Signs Vital Sign Reading Time Taken Comments Blood Pressure 114/82 09/02/2024 11:52 AM INTERNET SALES REPRESENTATIVE Pulse 92 09/02/2024 11:52 AM INTERNET SALES REPRESENTATIVE Temperature 36.9 C (98.4 F) 09/02/2024 11:52 AM INTERNET SALES REPRESENTATIVE Respiratory Rate 16 09/02/2024 11:5 2 AM INTERNET SALES REPRESENTATIVE Oxygen Saturation 98% 09/02/2024 11: 52 AM INTERNET SALES REPRESENTATIVE Inhaled Oxygen Concentration - - Weight 158.5 kg (349 lb 6.4 oz) 025 11:52 AM INTERNET SALES REPRESENTATIVE Height 165.1 cm (5' 5 ) 09/02/2024 11:5 2 AM INTERNET SALES REPRESENTATIVE Body Mass Index 58.14 09/02/2024 11:52 AM INTERNET SALES REPRESENTATIVE Plan of Treatment Upcoming Encounters Date Type Department Care Team (Late st Contact Info) Description 10/26/2024 1:40 PM CDT Laboratory Only [facility] Family & Internal Medicine [address] [address] Harris Bowers DO [address] [place] [address] 11/02/2024 1:20 PM CDT Office Visit [facility] Family & Internal [address] [address] Harris Bowers DO [address] [place] [address] Health Maintenance Due Date Last Done Comments Cervical Cancer Screening Pa p Smear (Age 30 to 64) Every 3 Years 1977 Annual Physical 1980 Cervical Cancer Screening Pa p with HPV Testing (Age 30 to 64) Every 5 Years 12/05/2007 PHQ-2 (Physician [place]) 07/06/2024 12/03/2022 COVID-19 Vaccine (1 - 2023-2 [...] VE NON-REACT JEM 02/13/2022 9:47 PM CDT [facility] Comment: ANTIBODIES TO HCV NOT DETECTED. DOES NOT EXCLUDE THE POSSIBILITY OF EXPOSURE TO HCV. 02/13/2022 2:07 PM CDT Harris Bowers DO LABORATORY Final Re sult [facility] [address] [place] [address], [id number] from Last 3 Months or Most Recently Relevant to Health Maintenance Insurance G[employer]ARD[employer] Care Teams Boom Tender Relationship Specialty Start Date End Date Harris Bowers DO [address] [place] [phone] PCP - General FAMILY PRACTICE 09/14/18
--- OUTSIDE RECORDS SUMMARY | 2024-10-10 19:16 | XMS_ITS | Encounter Summary ---
Author Organization [facility] Address [address] [place] [address] Care Team Providers Care Sales Inspector Name Role Phone Harris Bowers DO Primary Care Provider + Encounter Details Date Type Department Care Team (Late st Contact Info) Description 12/31/2022 Consumer Agent Portal (CAP) Message Enc [facility] Medical Group - [facility] [address] [place], [place] [address] [employer] [facility] Provider Air Quality Message Social History Tobacco Use Types Packs/Day Years Used Date Smoking Tobacco: Every Day Cigarettes 1 20 Smokeless Tobacco: Never Comments:provider to dianetic counselor Alcohol Use Standard Drinks/Week Comments Yes [...] Sex Assigned at Female 09/02/2024 11:52 AM NEW PRODUCT TRAINER Legal Sex Female 8:06 PM CDT Gender Identity Female 09/02/2024 11:52 AM NEW PRODUCT TRAINER Sexual Orientation Not on file COVID-19 Exposure [...] Only [facility] Family & Internal [place] [address] [place] [address] Harris Bowers DO [address] [place] [address] 11/02/2024 1:20 PM CDT Office Visit [facility] Internal [address] [phone] Harris Bowers DO [address] [place] [address] documented as of this encounter Visit Diagnoses Not on filedocumented in this encounter Additional Health Concerns Assessment Noted Time PHQ-9 Depression Total Score: 15 022 12:51 PM CDT documented as of this encounter Care Teams Sales Inspector Relationship Specialty Start Date End Date Harris Bowers DO [address] [place] [address] PCP - General FAMILY PRACTICE 09/14/18 documented as of this encounter
[2024-10-10 19:26] LABS: Band Neutrophils Percent 3 % (0-6); Lymphocytes Absolute Manual 1.32 K/mm3 (1.1-4.5); Monocytes Percent Manual 11 % (3-9); Neutrophils Absolute Manual 22.17 K/mm3 (1.7-7.2); Neutrophils Percent Manual 81 % (46-73); Platelet Clumps Present; Platelet Estimate Adequate (Adequate); Schistocytes None Seen; Total Cells Counted 100
[2024-10-10 19:31] LABS: Influenza A QL RT-PCR Negative (Negative); Influenza B QL RT-PCR Negative (Negative); RSV RNA, RT-PCR Negative (Negative); SARS-CoV-2 RNA PCR Negative (Negative)
--- NOTE | 2024-10-10 19:43 | ED.SOB ---
HPI - SOB/Dyspnea General Chief Complaint: Shortness of Breath/Dyspnea Stated Complaint: Shortness of breath Time Seen by Provider: 10/10/24 19:09 Source: patient Mode of arrival: EMS Limitations: no limitations History of Present Illness HPI Narrative: This is a 48-year-old female, with reported history of DVT, who presents emergency department complaining of shortness of breath and chest pain for the past 2 days. The patient states her symptoms began with tingling in hands and feet and lower extremity pain over the past week that she attributed to blood clots. She states she has been taking 81 mg aspirin. Today she developed shortness of breath and chest pressure rated moderate. She has no other complaints at this time. Related Data Home Medications ?Medication ?Instructions ?Recorded ?Confirmed ?Last Taken ?Type ibuprofen 600 mg tablet 600 mg PO Q6H PRN Inflammation 09/07/21 04/01/23 09/04/21 History lisinopril 20 mg tablet 40 mg PO DAILY 02/04/23 04/01/23 Unknown History Allergies Allergy/AdvReac Type Severity Reaction Status Date / Time Penicillins Allergy Unknown Other Verified 10/10/24 18:44 Review of Systems Review of Systems: All systems reviewed & are unremarkable except as noted in HPI and below PMFSH Past Medical History Medical History Obesity hypoventilation syndrome COPD (chronic obstructive pulmonary disease) with emphysema Hypertension Surgical History Surgical History No pertinent past surgical history Family History Family History Sibling Cerebrovascular accident Other Lung cancer Social History Social History Smoking packs per day: 0.75 Smoking cigarettes per day: 15.0 Years smoked: 20 Smoking pack-years: 15.00 Smoking status: Current every day smoker Tobacco type: cigarettes Alcohol intake: current Drinks per week: 2 Substance use: never Spiritual care concerns: No Exam Narrative: GENERAL: Well-developed, well-nourished, in moderate to severe respiratory distress HEAD: Normocephalic, atraumatic. EYES: PERRLA and EOMI. ENT: Nares clear, no rhinorrhea or epistaxis. Mucous membranes moist. Oropharynx without tonsillar hypertrophy exudate or other lesions. NECK: Supple. No JVD CHEST: Wheezes in the bilateral posterior lung dillon. Moderate to severe respiratory distress. Using accessory muscles of respiration. No rales or rhonchi HEART: Tachycardic with regular rhythm. No murmur heard. Normal peripheral pulses. ABDOMEN: Soft, nontender, nondistended, normal active bowel sounds. EXTREMITIES: Normal range of motion. No edema. SKIN: Warm, dry, no rash. NEURO: Alert and oriented x3. No focal deficit. Moving all 4 limbs spontaneously PSYCH: Normal mood and affect. Course Course Emergency Course: 19:23 - White blood cell count 26.4. Given the patient's respiratory distress, I have increased concern for sepsis. Will treat with Rocephin and azithromycin for presumed pneumonia. Place the patient on BiPAP for work of breathing. 22:41 - CBC as above with hemoglobin of 13.3. ABG demonstrates normal pH of 7.43 with pCO2 of 47.9 and bicarb of 31.6; P a over to 81 on 40% FiO2. Chemistries demonstrate mild hyponatremia with sodium of 127 and elevated glucose of 192. Troponin negative. BNP 7 of 2. Lactic acid 0.9. UA unremarkable. The patient tested negative for COVID, influenza and RSV. Iris see to a phone call from radiologist, Dr. Moody Lee who notes the patient has developed a new large pericardial effusion without changes concerning for ventricular collapse. I briefly discussed the patient with hospitalist, Dr. Leslie who recommends the patient be transferred to a facility that has cardiothoracic surgery available. I discussed the patient with [facility] transfer system. 23:09 - CTA of the chest limited due to patient's body habitus. There is no central PE with indeterminate findings in the periphery. There is a left upper lobe consolidation. I discussed the patient with [facility] Hospitalist, Dr. Mcfarlane who recommends admission to ICU. 23:30 - I received notification, the patient was accepted by esthetician permanent makeup artist, Dr. Johnson. I did not speak directly speak with Dr. Johnson. Vital Signs Vital signs: Vital Signs Pulse Oximetry 98 10/10/24 18:33 Oxygen Delivery Nasal Cannula 10/10/24 18:33 Oxygen Flow Rate 4 10/10/24 18:33 Temperature 99.6 F 10/10/24 18:37 Pulse Rate 100 10/11/24 04:20 Respiratory Rate 27 H 10/11/24 04:20 Blood Pressure 117/73 10/11/24 04:03 Pulse Oximetry 96 10/11/24 04:20 Oxygen Delivery BiPAP 10/11/24 04:20 Oxygen Flow Rate 4 10/10/24 19:45 MDM - SOB/Dyspnea MDM Narrative Medical decision making narrative: Plan: Labs, EKG, imaging, sepsis protocol, IV antibiotics, nebs, BiPAP, reassess Differential Diagnosis Differential diagnosis: Likely acute exacerbation of chronic obstructive airways disease, congestive heart failure, community acquired pneumonia, pulmonary embolism and other (ACS, sepsis, metabolic abnormality, anemia, other) Lab Data 10/10/24 18:45 10/10/24 18:45 Labs: Lab Results 10/10/24 10/10/24 10/10/24 Range/Units 18:45 18:50 19:51 WBC 26.4 H (4.5-10.0) K/mm3 RBC 4.51 (4.2-5.4) M/mm3 Hgb 13.3 (12.0-15.0) g/dL Hct 40.4 (37.0-47.0) % MCV 89.6 (80-100) fl MCH 29.5 (26-34) pg MCHC 32.9 (32-36) g/dl RDW 13.4 (11.5-14.5) % Plt Count 341 (150-375) k/mm3 MPV 9.8 (7.4-10.4) fl Immature Gran % (Auto) Not Reportable Neut % (Auto) Not Reportable Lymph % (Auto) Not Reportable Dickens % (Auto) Not Reportable Eos % (Auto) Not Reportable Baso % (Auto) Not Reportable Lymph # (Auto) Not Reportable Dickens # (Auto) Not Reportable Eos # (Auto) Not Reportable Baso # (Auto) Not Reportable Abs Immat Gran (auto) Not Reportable Absolute Neuts (auto) Not Reportable Absolute Nucleated RBC Not Reportable Total Counted 100 Neutrophils % (Manual) 81 H (46-73) % Band Neutrophils % 3 (0-6) % Lymphocytes % (Manual) 5.0 L (18-44) % Monocytes % (Manual) 11 H (3-9) % Nucleated RBC % Not Reportable Abs Neuts (Manual) 22.17 H (1.7-7.2) K/mm3 Abs Lymphs (Manual) 1.32 (1.1-4.5) K/mm3 Abs Monocytes (Manual) 2.90 H (0.1-0.90) K/mm3 Platelet Estimate Adequate (Adequate) Clumped Platelets Present Schistocytes None seen PT 15.0 H (11.1-14.7) Seconds INR 1.1 APTT 37.7 H (22.3-36.8) Seconds Expiratory Pressure CMH2O Inspiratory Pressure CMH2O Sodium 127 L (137-145) mmol/L Potassium 4.1 (3.4-5.0) mmol/L Chloride 89 L (98-107) mmol/L Carbon Dioxide 28 (22-30) mmol/L Anion Gap 10 (4-12) mmol/L BUN 11 (7-17) mg/dL Creatinine 0.60 L (0.7-1.0) mg/dL Estim Creat Clear Calc 137 ml/min Estimated GFR > 60 (59 - ) Glucose 192 H (65-110) mg/dL Lactic Acid 0.9 (0.7-2.0) mmol/L Calcium 8.8 (8.4-10.2) mg/dL Magnesium 1.9 (1.6-2.3) mg/dL Total Bilirubin 2.5 H (0.2-1.3) mg/dL AST 33 (14-36) U/L ALT 29 (6-35) U/L Alkaline Phosphatase 134 H (38-126) U/L Troponin I < 0.012 (0.000-0.034) ng/mL C-Reactive Protein 19.4 H (<1.0) mg/dL NT-Pro-B Natriuret Pep 702 H (19.9-100) pg/mL Total Protein 8.0 (6.3-8.2) g/dL Albumin 4.0 (3.5-5.1) g/dL Urine Color (Yellow) Urine Appearance (Clear) Urine pH (5.0-9.0) Ur Specific [place] (1.001-1.035) Urine Protein (Negative) mg/dL Urine Glucose (UA) (Negative) mg/dL Urine Ketones (Negative) mg/dL Ur Blood (Man) (Negative) Urine Nitrate (Negative) Urine Bilirubin (Negative) Urine Urobilinogen (<2.0) mg/dL Leukocyte Esterase Rfl (Negative) YOKO/UL POC Urine HCG, Qual (Negative) Influenza A (RT-PCR) Negative (Negative) Influenza B (RT-PCR) Negative (Negative) RSV (RT-PCR) Negative (Negative) SARS-CoV-2 RNA (RT-PCR) Negative (Negative) 10/10/24 10/10/24 10/10/24 Range/Units 20:37 22:48 22:52 WBC (4.5-10.0) K/mm3 RBC (4.2-5.4) M/mm3 Hgb (12.0-15.0) g/dL Hct (37.0-47.0) % MCV (80-100) fl MCH (26-34) pg MCHC (32-36) g/dl RDW (11.5-14.5) % Plt Count (150-375) k/mm3 MPV (7.4-10.4) fl Immature Gran % (Auto) Neut % (Auto) Lymph % (Auto) Dickens % (Auto) Eos % (Auto) Baso % (Auto) Lymph # (Auto) Dickens # (Auto) Eos # (Auto) Baso # (Auto) Abs Immat Gran (auto) Absolute Neuts (auto) Absolute Nucleated RBC Total Counted Neutrophils % (Manual) (46-73) % Band Neutrophils % (0-6) % Lymphocytes % (Manual) (18-44) % Monocytes % (Manual) (3-9) % Nucleated RBC % Abs Neuts (Manual) (1.7-7.2) K/mm3 Abs Lymphs (Manual) (1.1-4.5) K/mm3 Abs Monocytes (Manual) (0.1-0.90) K/mm3 Platelet Estimate (Adequate) Clumped Platelets Schistocytes PT (11.1-14.7) Seconds INR APTT (22.3-36.8) Seconds Expiratory Pressure 6 CMH2O Inspiratory Pressure 12 CMH2O Sodium (137-145) mmol/L Potassium (3.4-5.0) mmol/L Chloride (98-107) mmol/L Carbon Dioxide (22-30) mmol/L Anion Gap (4-12) mmol/L BUN (7-17) mg/dL Creatinine (0.7-1.0) mg/dL Estim Creat Clear Calc ml/min Estimated GFR (59 - ) Glucose (65-110) mg/dL Lactic Acid (0.7-2.0) mmol/L Calcium (8.4-10.2) mg/dL Magnesium (1.6-2.3) mg/dL Total Bilirubin (0.2-1.3) mg/dL AST (14-36) U/L ALT (6-35) U/L Alkaline Phosphatase (38-126) U/L Troponin I (0.000-0.034) ng/mL C-Reactive Protein (<1.0) mg/dL NT-Pro-B Natriuret Pep (19.9-100) pg/mL Total Protein (6.3-8.2) g/dL Albumin (3.5-5.1) g/dL Urine Color Dark yellow (Yellow) Urine Appearance Clear (Clear) Urine pH 5.5 (5.0-9.0) Ur Specific [place] 1.022 (1.001-1.035) Urine Protein Negative (Negative) mg/dL Urine Glucose (UA) Negative (Negative) mg/dL Urine Ketones Negative (Negative) mg/dL Ur Blood (Man) Negative (Negative) Urine Nitrate Negative (Negative) Urine Bilirubin Negative (Negative) Urine Urobilinogen 1.0 (<2.0) mg/dL Leukocyte Esterase Rfl Negative (Negative) YOKO/UL POC Urine HCG, Qual Negative (Negative) Influenza A (RT-PCR) (Negative) Influenza B (RT-PCR) (Negative) RSV (RT-PCR) (Negative) SARS-CoV-2 RNA (RT-PCR) (Negative) ABG Data ABG results: 10/10/24 20:37 Puncture Site Right radial ABG pH 7.437 ABG pCO2 47.9 H ABG pO2 81.8 ABG PO2/FiO2 Ratio 2.05 ABG HCO3 31.6 H ABG O2 Saturation 96.3 ABG O2 Content 18.2 ABG Base Excess 6.3 A-a Gradient 148.3 Oxyhemoglobin 92.9 Total Hemoglobin 13.9 O2 Delivery Device Non-invasive vent O2 Liters/Min Not Reportable Vent Rate 10 FiO2 40 ECG Data EKG #1: Attestation: I personally reviewed and interpreted this ECG as follows: ECG completion date: 10/10/24 ECG completion time: 18:46 Prior ECG tracings: not available for review Interpretation: Sinus tachycardia with intermittent PVCs, rate 118, normal axis, no ST segment elevations or T-wave inversions concerning for ischemia, normal intervals with QTC of 419. Discharge Plan Discharge Clinical Impression: Acute hypoxic respiratory failure, Acute pericardial effusion, Acute hyponatremia Patient Disposition: Acute Care Hospital Condition: Serious Patient Language: Sinhala Prescriptions: No Action lisinopril 20 mg tablet 40 mg PO DAILY Incruse Ellipta 62.5 mcg/actuation blister with device 1 inh inhalation DAILY Qty: 30 3RF albuterol sulfate 2.5 mg /3 mL (0.083 %) solution for nebulization 2.5 mg inhalation Q4H PRN (Reason: shortness of breath or wheezing) Qty: 15 0RF ipratropium bromide 0.02 % solution 2.5 ml inhalation Q6H PRN (Reason: shortness of breath or wheezing) Qty: 12.5 0RF ibuprofen 600 mg Tablet 600 mg PO Q6H PRN (Reason: Inflammation) tramadol 50 mg Tablet 50 mg PO Q6H PRN (Reason: Pain 4-6) Qty: 12 0RF furosemide [Lasix] 20 mg tablet 20 mg PO DAILY Qty: 30 0RF hydrocodone-acetaminophen 5-325 mg tablet 1 tablet PO Q6H PRN (Reason: pain) Qty: 14 0RF lidocaine 1.8 % adhesive patch,medicated 3 patch topical DAILY Qty: 30 0RF Rx Instructions: leave on most painful area for up to 12 hrs mometasone-formoterol 200-5 mcg/actuation HFA aerosol inhaler 2 puff inhalation BID Qty: 8.8 3RF albuterol sulfate 90 mcg/actuation HFA aerosol inhaler 1 inh inhalation QID PRN (Reason: shortness of breath or wheezing) Qty: 8.5 3RF Follow-up/Referrals: Robinson,DO Harris [Primary Care Provider] - Time of Disposition: 23:30
[2024-10-10] MEDS: IPRATROPIUM 0.5 MG/ALBUTEROL SULFATE 2.5 MG AMPUL.NEB 3 ML INHALATION (19:45)
[2024-10-10 19:47] LABS: Magnesium 1.9 mg/dL (1.6-2.3)
[2024-10-10 19:54] LABS: INR 1.1
[2024-10-10 19:55] LABS: Partial Thromboplastin Time 37.7 Seconds (22.3-36.8)
[2024-10-10 20:00] LABS: NT Pro B Type Natriuretic Pept 702 pg/mL (19.9-100); Troponin I < 0.012 ng/mL (0.000-0.034)
[2024-10-10 20:01] LABS: CRP 19.4 mg/dL (<1.0)
[2024-10-10 20:07] LABS: Lactic Acid Reflex 0.9 mmol/L (0.7-2.0)
[2024-10-10 20:38] LABS: Alveolar/Arterial O2 Gradient 148.3 mmHg; Base Excess ABG 6.3 mEq/l (+/-2.0); Fractional Inspired Oxygen 40 %; HCO3 ABG 31.6 mEq/l (22.0-26.0); Oxygen Content ABG 18.2 %vol (16.0-22.0); Oxygen Saturation ABG 96.3 % (95.0-100.0); Oxyhemoglobin 92.9 % THb (90.0-100.0); PCO2 ABG 47.9 mmHg (35.0-45.0); PO2 ABG 81.8 mmHg (80.0-100.0); PO2 FiO2 Ratio Arterial Blood 2.05 %; Total Hemoglobin 13.9 g/dL (12.0-18.0); pH ABG 7.437 (7.350-7.450)
[2024-10-10 20:40] LABS: Device NON-INVASIVE VENT; Modified Allen's Test Pass; Site Drawn RIGHT RADIAL
[2024-10-10 20:41] LABS: Non-Invasive Expiratory Pressure 6 CMH2O; Non-Invasive Inspiratory Pressure 12 CMH2O; Non-Invasive Vent Rate 10 /MIN
[2024-10-10] MEDS: LORazepam INJ (*CRX) 2 MG/ML VIAL 0.5 MG IV PUSH (20:45)
[2024-10-10] MEDS: AZITHROMYCIN 500 MG/NS 250 ML 500 MG/250 ML BAG 250 MG IVPB (22:26)
[2024-10-10 22:55] LABS: BEDSIDEPREGUCG Negative (Negative)
[2024-10-10 22:56] LABS: Add Urine Microscopic? YES; Appearance Urine Clear (Clear); Bilirubin Urine Negative (Negative); Blood Urine Negative (Negative); Color Urine Dark Yellow (Yellow); Glucose Urine UA Negative (Negative); Ketones Urine Negative (Negative); Leukocyte Esterase Ur Negative LEU/UL (Negative); Nitrate Urine Negative (Negative); Protein Urine Negative (Negative); Specific Grav Ur 1.022 (1.001-1.035); pH Urine 5.5 (5.0-9.0)
--- NOTE | 2024-10-10 23:41 | PC.NURSE ---
Pt Kaden phone number [phone]. Would like to be contacted if any changes.
[2024-10-11] VITALS (8 sets, daily range): BP systolic 98–118; BP diastolic 56–73; PULSE 96–110; RESP 22–32; O2SAT 96–99
[2024-10-11] MEDS: ACETAMINOPHEN 500 MG TABLET 1000 MG PO (05:39)
== END 2024-10-11 06:04 | disposition short-term general hospital (02) ==
PROVIDERS: Emergency Medicine; Emergency Provider Preventive Medicine Aerospace Medicine; PCP Student in an Organized Health Care Education/Training Program
DX: J96.01 Acute respiratory failure with hypoxia (principal); I30.9 Acute pericarditis, unspecified; E87.1 Hypo-osmolality and hyponatremia; Z20.822 Contact with and (suspected) exposure to COVID-19; J44.9 Chronic obstructive pulmonary disease, unspecified; I10 Essential (primary) hypertension; E66.2 Morbid (severe) obesity with alveolar hypoventilation; Z68.43 Body mass index [BMI] 50.0-59.9, adult; F17.210 Nicotine dependence, cigarettes, uncomplicated; Z86.718 Personal history of other venous thrombosis and embolism; Z79.899 Other long term (current) drug therapy
CPT/HCPCS: 36415; 36600; 71046; 71275; 80053; 81001; 81025; 82805; 83605; 83735; 83880; 84484; 85018; 85025; 85610; 85730; 86140; 87040; 87637; 93005; 94640; 96365; 96367; 96375; 99285; A9270; J0456; J0696; J2060; Q9967